=== PATIENT | female | born 1930 | race Caucasian/White ===

== ENCOUNTER 2017-03-29 13:38 | Emergency (ER) | payer OTHER ==
[~2017-03-29] VITALS: Ht 162.6 cm; Wt 63.0 kg
[~2017-03-29 13:38] MED LIST: ADULT LOW DOSE81 MG; ASPIR 8181 MG PO; ASPIRIN81 M2 PO; BENAZEPRIL HCL10 MG PO; CEFUROXIME500 MG PO; CIPRO500 MG PO; COUMADIN 4 MG TA4 M1 PO; COUMADIN 5 MG TA5 MG PO; ENOXAPARIN80 MG/0.1 SUBQ; FLOMAX0.4 MG PO; FLONASE 0.05%50 MCG NASAL; FUROSEMIDE 20 M20 MG PO; LEVAQUIN 250 M250 MG PO; LEVAQUIN 500 M500 M4 PO; LIPITOR 20 MG T20 M1 PO; LISINOPRIL10 MG PO; LISINOPRIL20 MG PO; LISINOPRIL5 MG; MAGNES; NOLVADEX20 MG PO; NORCO 5-325 TA1 EACH PO; POTASSIUM20 PO; PRADAXA150 MG PO; PROTONIX40 M1 PO; TOPROL XL25 MG PO; TOPROL XL50 MG PO; TRICOR48 MG; ZANTAC 150MG T150 M1; ZANTAC 150MG T150 M1 PO
[2017-03-29] MEDS ORDERED: COUMADIN 3 MG TA3 M1 PO (14:00)
[2017-03-29] MEDS ORDERED: LIPITOR 20 MG T20 M1 PO (14:01)
[2017-03-29] MEDS ORDERED: COUMADIN 4 MG TA4 M1 PO (14:01)
[2017-03-29] MEDS ORDERED: PROTONIX40 M1 PO (14:01)
[2017-03-29] MEDS ORDERED: NORVASC5 MG PO (14:01)
[2017-03-29] MEDS ORDERED: METOPROLOL SUCC25 M1 PO (14:02)
[2017-03-29] MEDS ORDERED: ASPIR 8181 MG PO (14:02)
[2017-03-29 14:34] LABS: ABSOLUTE EOSINOPHILS 0.1 thou/uL (0.0-0.7); ABSOLUTE LYMPHOCYTES 1.2 thou/uL (0.8-5.3); ABSOLUTE MONOCYTES 0.5 thou/uL (0.0-1.2); ABSOLUTE NEUTROPHILS 2.9 thou/uL (1.6-8.1); BASOPHILS 0.9 %; EOSINOPHILS 1.3 %; HEMATOCRIT 35.2 % (37.0-47.0); HEMOGLOBIN 11.6 gm/dL (12.0-15.0); LYMPHOCYTES 25.6 %; MCH 28.9 pg (26.0-34.0); MCV 87.7 fL (80.0-100.0); MONOCYTES 10.7 %; MPV 8.5 fl. (7.2-11.1); NUCLEATED RBCS 0 /100WBC; PLATELET COUNT* 174 thou/uL (150-400); POLYS 61.5 %; RBC 4.02 mil/uL (4.20-5.00); WBC 4.7 thou/uL (4.0-11.0)
[2017-03-29 14:40] LABS: CALCIUM 8.2 mg/dL (8.5-10.1); POTASSIUM 4.4 mmol/L (3.5-5.1)
[2017-03-29 14:45] LABS: ALBUMIN 2.8 g/dL (3.4-5.0); TOTAL BILIRUBIN 0.2 mg/dL (<0.1-1.0)
[2017-03-29 14:47] LABS: INR 2.2; PROTIME 21.5 Seconds (9.20-11.50)
[2017-03-29 16:11] VITALS: BP 116/56
== END 2017-03-29 16:13 | disposition home or self-care (01) ==
LOC: M.ERS 13:38
PROVIDERS: Nurse Practitioner Family
DX: M17.12 Unilateral primary osteoarthritis, left knee (principal)

== ENCOUNTER 2017-08-26 08:01 | Observation (INO) | payer OTHER ==
[2017-08-26] VITALS (7 sets, daily range): BP systolic 91–157; BP diastolic 52–81
[~2017-08-26] VITALS: Ht 165.1 cm; Wt 64.9 kg
[~2017-08-26 08:01] MED LIST changes: +COUMADIN 3 MG TA3 M1 PO; +METOPROLOL SUCC25 M1 PO; +NORVASC5 MG PO
[2017-08-26 08:27] LABS: ABSOLUTE MONOCYTES 0.3 thou/uL (0.0-1.2); BASOPHILS 0.6 %; EOSINOPHILS 0.7 %; HEMATOCRIT 39.4 % (37.0-47.0); HEMOGLOBIN 12.9 gm/dL (12.0-15.0); MCH 28.3 pg (26.0-34.0); MCHC 32.7 g/dL (28.0-37.0); MCV 86.7 fL (80.0-100.0); MONOCYTES 7.6 %; MPV 8.5 fl. (7.2-11.1); NUCLEATED RBCS 0 /100WBC; PLATELET COUNT* 151 thou/uL (150-400); POLYS 68.1 %; RBC 4.54 mil/uL (4.20-5.00); RDW-CV 15.8 % (10.5-14.5); WBC 4.4 thou/uL (4.0-11.0)
[2017-08-26 08:47] LABS: ANION GAP 7 mmol/L (7-16); BUN 14 mg/dL (7-18); CALCIUM 8.5 mg/dL (8.5-10.1); CHLORIDE 106 mmol/L (98-107); CO2 27 mmol/L (21-32); CREATININE 0.7 mg/dL (0.6-1.3); GLUCOSE 100 mg/dL (70-99); POTASSIUM 3.7 mmol/L (3.5-5.1); SODIUM 140 mmol/L (136-145)
[2017-08-26 08:52] LABS: APTT 32.9 Seconds (25.0-31.3); INR 2.9; PROTIME 27.8 Seconds (9.20-11.50)
[2017-08-26 08:54] LABS: ALBUMIN 3.2 g/dL (3.4-5.0); ALKALINE PHOSPHATASE 99 U/L (46-116); LIPASE 101 U/L (73-393); SGOT 25 U/L (15-37); SGPT 15 U/L (30-65); TOTAL BILIRUBIN 0.8 mg/dL (<0.1-1.0); TOTAL PROTEIN 6.5 g/dL (6.4-8.2); TROPONIN-I LEVEL <0.06 ng/mL (<0.06)
[2017-08-26 09:06] LABS: URINE BILIRUBIN NEGATIVE (Negative); URINE BLOOD TRACE (Negative); URINE CLARITY CLEAR; URINE COLOR YELLOW; URINE GLUCOSE-RANDOM NEGATIVE (Negative); URINE KETONES NEGATIVE (Negative); URINE LEUKOCYTES-REFLEX NEGATIVE (Negative); URINE NITRITE-REFLEX NEGATIVE (Negative); URINE PROTEIN NEGATIVE (Negative); URINE SPECIFIC GRAVITY <= 1.005 (1.005-1.030); URINE UROBILINOGEN 0.2 E.U./dl (0.2-1.0)
--- NOTE | 2017-08-26 15:30 | 2DMMODE ---
[place] [address] 2 D/M-MODE ECHOCARDIOGRAM Name: EVERETTE PATTERSON Room: [address] IN [facility]#: [id number] Admission: 08/26/17 Attend Phys: Hemal Alvarez, Discharge: Date of : 30 Date of Service: 08/26/17 1530 Report #: [id number] THIS REPORT FOR: //name// APPROVED REPORT Study performed: 08/26/2017 14:38:03 EXAM: Comprehensive 2D, Doppler, and color-flow Echocardiogram Patient Location: In-Patient Room #: [facility] Status: routine BSA: 1.70 HR: 61 bpm BP: 126/63 mmHg Rhythm: NSR Other Information Study Quality: Good Indications Atrial Fibrillation 2D Dimensions LVEF(%): 60.49 (>50%) IVSd: 9.57 (7-11mm) LVOT Diam: 22.15 (18-24mm) LVDd: 42.64 mm PWd: 11.03 (7-11mm) Ascending Ao: 34.58 (22-36mm) LVDs: 28.98 (25-40mm) Aortic Root: 36.75 mm West's LVEF: 60.49 % Volumes Left Atrial Volume (Systole) LA ESV Index: 46.90 mL/m2 Aortic Valve AoV Peak Chava.: 1.04 m/s AO Peak Gr.: 4.35 mmHg LVOT Max P.67 mmHg AO Mean Gr.: 2.12 mmHg LVOT Mean P.04 mmHg LVOT Max V: 0.82 m/s AO V2 VTI: 23.89 cm LVOT Mean V: 0.46 m/s EMMA (VTI): 3.18 cm2 LVOT V1 VTI: 19.73 cm AI [place]: 1.59 m/s2 AI PHT: 589.84 [place] [address] 2 D/M-MODE ECHOCARDIOGRAM Name: EVERETTE PATTERSON Room: [address] IN [facility].#: [id number] Admission: 08/26/17 Attend Phys: Hemal Alvarez, Discharge: Date of : 30 Date of Service: 08/26/17 1530 Report #: [id number] Mitral Valve E/A Ratio: 1.02 MV Decel. Time: 160.29 ms MV E Max Chava.: 0.72 m/s MV PHT: 46.48 ms MVA (PHT): 4.73 cm2 TDI E/Lateral E': 9.00 E/Medial E': 10.29 Medial E' Chava.: 0.07 m/s Lateral E' Chava.: 0.08 m/s Pulmonary Valve PV Peak Chava.: 0.62 m/s PV Peak Gr.: 1.55 mmHg Tricuspid Valve TR Peak Gr.: 25.16 mmHg RVSP: 30.00 mmHg Left Ventricle The left ventricle is normal size. There is slight dyssynergy noted of the left ventricle consistent with possible underlying bundle branch block. There is normal left ventricular wall thickness. Left ventricular systolic function is normal. LVEF is 50-55%. Transmitral Doppler flow pattern suggests impaired LV relaxation. Right Ventricle The right ventricle is normal size. The right ventricular systolic function is normal. Atria Left atrium is moderately dilated. The right atrium size is normal. Aortic Valve The aortic valve is normal in structure. Mild aortic regurgitation. There is no aortic valvular stenosis. Mitral Valve The mitral valve is normal in structure. Mild mitral regurgitation. No evidence of mitral valve stenosis. Tricuspid Valve The tricuspid valve is normal in structure. Mild tricuspid regurgitation. The RVSP is 30-35 mmHg[place] [address] 2 D/M-MODE ECHOCARDIOGRAM Name: EVERETTE PATTERSON Rodríguez Room: [address] IN [facility]#: [id number] Admission: 08/26/17 Attend Phys: Hemal Alvarez, Discharge: Date of : 30 Date of Service: 08/26/17 1530 Report #: [id number] The pulmonary valve is normal in structure. Mild pulmonic regurgitation. Great Vessels The aortic root is normal in size. IVC is not well visualized. Pericardium There is no pericardial effusion. <Conclusion> The left ventricle is normal size. There is normal left ventricular wall thickness. Left ventricular systolic function is normal. LVEF is 50-55%. Transmitral Doppler flow pattern suggests impaired LV relaxation. There is slight dyssynergy noted of the left ventricle consistent with possible underlying bundle branch block. Left atrium is moderately dilated. Mild aortic regurgitation. Mild mitral regurgitation. Mild tricuspid regurgitation. The RVSP is 30-35 mmHg. <ELECTRONICALLY SIGNED> By: Alcides Dougherty MD, FACC 08/26/17 153 29 29 Alcides Dougherty MD, FACC /INF
--- NOTE | 2017-08-26 16:24 | EKG ---
[place] [address] ELECTROCARDIOGRAM REPORT Name: EVERETTE PATTERSON Room: [address] IN [facility]#: [id number] Admission: 08/26/17 Attend Phys: Hemal Alvarez MD Discharge: Date of : 30 Report #: [id number] THIS REPORT FOR: //name// [facility] ED Test Date: 2017-08-26 Test Time: 08:30:19 Pat Name: EVERETTE PATTERSON Department: Room: Gender: Auto Tester: Narayan MCGUIRE : 1930 Requested By: Antoine Ruiz Order Number: [id number] MD: Alcides Dougherty Measurements Intervals [place] Rate: 68 P: -45 DC: 161 QRS: -34 QRSD: 85 T: 29 QT: 411 QTc: 438 Interpretive Statements Sinus or ectopic atrial rhythm Left axis deviation Compared to ECG 09/08/2016 07:20:55 Ectopic atrial rhythm now present Sinus rhythm no longer present Electronically Signed On 08-26-2017 16:24:05 CDT by Alcides Dougherty [email or web address] <ELECTRONICALLY SIGNED> By: Alcides Dougherty MD, FACC 08/26/17 1624 Alcides Dougherty MD, FAC /EPI
[2017-08-27] VITALS (9 sets, daily range): BP systolic 91–130; BP diastolic 49–69
[2017-08-27 05:16] LABS: INR 3.2; PROTIME 30.4 Seconds (9.20-11.50)
[2017-08-27 05:33] LABS: CALCIUM 8.5 mg/dL (8.5-10.1); CREATININE 0.7 mg/dL (0.6-1.3); POTASSIUM 4.2 mmol/L (3.5-5.1)
--- NOTE | 2017-08-28 15:16 | CON ---
[address] [address] CONSULTATION Name: LEONARDOEVERETTE Rodríguez Room: [address] Dora Snell#: [id number] Admission: 08/26/17 Attend Phys: Hemal Alvarez MD Discharge: 08/27/17 Date of : 30 Report #: [id number] THIS REPORT FOR: //name// CC: Hemal Silverio MD DATE OF SERVICE: 08/26/2017 CARDIOLOGY CONSULTATION INDICATION: Syncope. HISTORY OF PRESENT ILLNESS: The patient is a very pleasant 87-year-old white female who is fairly functional. Early Friday morning while sleeping, she arose to use the bedside commode. Upon standing to go back to bed, she became profoundly lightheaded and dizzy. She woke half on and half off of her bed. She did not have any injuries from this. She did not have any state felt to be postictal. The patient had another episode this morning of profound dizziness upon standing. She sat down and had her son called EMS. She was brought to the hospital for further evaluation. In the Emergency Room, she was noted to have a single run of nonsustained atrial tachycardia at a rate of approximately 140 beats per minute. This lasted only 12 beats. She has had no recurrent dysrhythmia. She does have a history of paroxysmal atrial fibrillation. She does also have a history of DVT with pulmonary emboli and IVC filter placement. She is chronically anticoagulated with warfarin. Her INR is currently 2.9. She is having no bleeding problems. She denies chest pain. She is not having shortness of breath. PAST MEDICAL HISTORY: 1. Paroxysmal atrial fibrillation. 2. History of DVT with pulmonary emboli. 3. IVC filter placement. 4. Nonobstructive coronary artery disease by catheterization in 2014. 5. History of gastric ulcer. 6. Hypertension. 7. Moderate pulmonary hypertension. 8. Hyperlipidemia. 9. Breast cancer. PAST SURGICAL HISTORY: 1. Appendectomy. 2. Hysterectomy. 3. Tonsillectomy. FAMILY HISTORY: [place] [address] CONSULTATION Name: EVERETTE PATTERSON Room: [address]#: [id number] Admission: 08/26/17 Attend Phys: Hemal Alvarez MD Discharge: 08/27/17 Date of : 30 Report #: [id number] SOCIAL HISTORY: The patient is retired. She does not smoke. She does not drink alcohol. She has a supportive daughter with her. ALLERGIES: None. HOME MEDICATIONS: Protonix 40 mg p.o. b.i.d., aspirin 81 mg daily, warfarin 3 mg 4 days weekly, followed by 4 mg 3 days weekly, atorvastatin 20 mg at bedtime, amlodipine 5 mg daily. REVIEW OF SYSTEMS: A 14-point review of systems is positive for generalized weakness without focal paralysis. She has had syncope as outlined above. She reports mild edema. She has a history of breast cancer remotely. She has a history of DVT. 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 She wears glasses without acute visual changes. PHYSICAL EXAMINATION: VITAL SIGNS: Stable. Blood pressure 126/63, pulse 66 and regular. GENERAL: This is a pleasant elderly female who is in no distress. Mood and affect appropriate. HEENT: The patient is wearing glasses. Extraocular muscles intact. Mucous membranes are moist. NECK: Examination of the neck shows no jugular venous distention. There are no carotid bruits. CHEST: Examination of the chest reveals clear lung villanueva without wheezes or rales. CARDIAC EXAMINATION: Reveals a regular rhythm with normal S1 and S2. I do not appreciate gallop or murmur. ABDOMEN: Examination of the abdomen reveals normal bowel sounds. The abdomen is soft and nontender. EXTREMITIES: Examination of the extremities shows no edema. Peripheral pulses 2+ and palpable. SKIN: Warm and dry. Carotid Doppler show mild bilateral plaquing without hemodynamically significant stenosis. Thyroid function studies are normal. LABORATORY DATA: INR 2.9. Metabolic profile within normal limits. Troponin less than 0.06. CBC unremarkable. Chest x-ray without acute process. IMPRESSION AND RECOMMENDATIONS: 1. Syncope, etiology not clear, but it sounds as if the patient may be having orthostatic hypotension. We will have orthostatic blood pressures checked in the hospital. The patient's blood pressure at present [place] [address] CONSULTATION Name: EVERETTE PATTERSON Rodríguez Room: [address] Dora Snell#: [id number] Admission: 08/26/17 Attend Phys: Hemal Alvarez MD Discharge: 08/27/17 Date of : 30 Report #: [id number] this point, I would be in favor of decreasing her amlodipine to 2.5 mg daily and following clinically. An echocardiogram has been ordered and is pending. 2. Paroxysmal atrial fibrillation. The patient is in sinus rhythm on beta cm alone. She is anticoagulated with warfarin and therapeutic. 3. History of deep venous thrombosis/pulmonary embolism with moderate pulmonary hypertension, presently stable. Repeat echocardiogram at this time. Continue warfarin indefinitely. 4. Hyperlipidemia. Continue statin agent as outlined above. 5. Coronary artery disease that is nonocclusive by catheterization 2 years ago, presently stable. The patient does not have any symptoms to suggest angina. The patient is on appropriate medications including 81 mg aspirin daily. <ELECTRONICALLY SIGNED> By: Alcides Dougherty MD, FACC 08/28/17 1516 1425 Jenny Dougherty MD, FACC /nt
== END 2017-08-27 17:10 | disposition home or self-care (01) ==
LOC: M.ERS 08:01 → M.TBA-ER 09:57 → M.2W 09:57
PROVIDERS: Emergency Medicine; ADMIT Internal Medicine
DX: I48.91 Unspecified atrial fibrillation (principal); I25.10 Atherosclerotic heart disease of native coronary artery without angina pectoris; R55 Syncope and collapse; D68.59 Other primary thrombophilia; I27.81 Cor pulmonale (chronic); K27.9 Peptic ulcer, site unspecified, unspecified as acute or chronic, without hemorrhage or perforation; I10 Essential (primary) hypertension; I27.20 Pulmonary hypertension, unspecified; I95.1 Orthostatic hypotension; E78.5 Hyperlipidemia, unspecified; Z90.710 Acquired absence of both cervix and uterus; Z95.828 Presence of other vascular implants and grafts; Z90.89 Acquired absence of other organs; Z86.718 Personal history of other venous thrombosis and embolism; Z87.19 Personal history of other diseases of the digestive system; Z85.3 Personal history of malignant neoplasm of breast; Z98.890 Other specified postprocedural states

== ENCOUNTER 2018-02-23 09:31 | Emergency (ER) | payer OTHER ==
[~2018-02-23] VITALS: Ht 170.2 cm; Wt 66.7 kg
[2018-02-23 10:18] LABS: ABSOLUTE LYMPHOCYTES 1.1 thou/uL (0.8-5.3); ABSOLUTE MONOCYTES 0.2 thou/uL (0.0-1.2); BASOPHILS 0.5 %; EOSINOPHILS 0.6 %; HEMATOCRIT 37.2 % (37.0-47.0); HEMOGLOBIN 12.2 gm/dL (12.0-15.0); LYMPHOCYTES 33.3 %; MCH 30.9 pg (26.0-34.0); MCHC 32.9 g/dL (28.0-37.0); MCV 93.9 fL (80.0-100.0); MONOCYTES 6.7 %; MPV 8.8 fl. (7.2-11.1); NUCLEATED RBCS 0 /100WBC; PLATELET COUNT* 138 thou/uL (150-400); POLYS 58.9 %; RBC 3.97 mil/uL (4.20-5.00); RDW-CV 15.4 % (10.5-14.5); WBC 3.4 thou/uL (4.0-11.0)
[2018-02-23 10:24] LABS: ANION GAP 6 mmol/L (7-16); BUN 18 mg/dL (7-18); CHLORIDE 107 mmol/L (98-107); CO2 28 mmol/L (21-32); CREATININE 0.7 mg/dL (0.6-1.3); GLUCOSE 89 mg/dL (70-99); POTASSIUM 4.1 mmol/L (3.5-5.1); SODIUM 141 mmol/L (136-145)
[2018-02-23 10:25] LABS: INR 1.8; PROTIME 18.1 Seconds (9.20-11.50)
[2018-02-23 10:31] LABS: ALKALINE PHOSPHATASE 97 U/L (46-116); SGOT 27 U/L (15-37); SGPT 18 U/L (30-65); TOTAL BILIRUBIN 0.6 mg/dL (<0.1-1.0); TOTAL PROTEIN 6.3 g/dL (6.4-8.2); TROPONIN-I LEVEL <0.06 ng/mL (<0.06)
[2018-02-23 10:34] LABS: URINE BILIRUBIN NEGATIVE (Negative); URINE BLOOD TRACE (Negative); URINE CLARITY CLEAR; URINE COLOR YELLOW; URINE GLUCOSE-RANDOM NEGATIVE (Negative); URINE KETONES NEGATIVE (Negative); URINE LEUKOCYTES-REFLEX 1+ (Negative); URINE NITRITE-REFLEX NEGATIVE (Negative); URINE PROTEIN NEGATIVE (Negative); URINE SPECIFIC GRAVITY 1.015 (1.005-1.030); URINE UROBILINOGEN 0.2 E.U./dl (0.2-1.0)
[2018-02-23 10:44] LABS: BACTERIA-REFLEX 1-9 Few /HPF (None Seen); CASTS None Seen /LPF (None Seen); CRYSTALS None Seen /LPF (None Seen); MUCUS None Seen strn/LPF (None Seen); SQUAMOUS >10 Many /LPF (0-3); URINE RBC 3-10 Few /HPF (0-2); URINE WBC-REFLEX 0-5 Rare /HPF (0-5)
[2018-02-23] MEDS ORDERED: KEFLEX500 M1 PO (13:09)
[2018-02-23 13:42] VITALS: BP 134/60
--- NOTE | 2018-02-23 17:35 | EKG ---
[place] [address] ELECTROCARDIOGRAM REPORT Name: LEONARDOEVERETTE L Room: [facility]#: [id number] Admission: 02/23/18 Attend Phys: Discharge: 02/23/18 Date of : 30 Report #: [id number] THIS REPORT FOR: //name// [facility] ED Test Date: 2018-02-23 Test Time: 09:40:33 Pat Name: EVERETTE PATTERSON Department: Room: Gender: F Library Assistant: Deanna TAY : 1930 Requested By: Soy Osorio Order Number: [id number] MD: Roshan Ching Measurements Intervals [place] Rate: 77 P: -62 AL: 147 QRS: -25 QRSD: 83 T: 25 QT: 395 QTc: 448 Interpretive Statements Ectopic atrial rhythm Borderline left axis deviation Compared to ECG 08/26/2017 08:30:19 No significant changes Electronically Signed On 02-23-2018 17:35:17 DEVELOPER SUPPORT ENGINEER by Roshan Ching [email or web address] <ELECTRONICALLY SIGNED> By: Roshan Ching MD, [facility] 02/23/18 1735 9 9 Roshan Ching MD, FACC /EPI
== END 2018-02-23 13:43 | disposition home or self-care (01) ==
LOC: M.ERS 09:31
PROVIDERS: Emergency Medicine Emergency Medical Services
DX: R53.1 Weakness (principal); N39.0 Urinary tract infection, site not specified; I10 Essential (primary) hypertension; I48.91 Unspecified atrial fibrillation; I25.10 Atherosclerotic heart disease of native coronary artery without angina pectoris; Z90.49 Acquired absence of other specified parts of digestive tract; Z90.710 Acquired absence of both cervix and uterus; Z86.711 Personal history of pulmonary embolism; Z85.118 Personal history of other malignant neoplasm of bronchus and lung

== ENCOUNTER 2018-04-26 07:36 | Inpatient (IN) | payer OTHER ==
[~2018-04-26] VITALS: Ht 167.6 cm; Wt 65.0 kg
[~2018-04-26 07:36] MED LIST changes: +KEFLEX500 M1 PO
[2018-04-26 07:40] VITALS: BP 132/66
[2018-04-26 08:16] LABS: ABSOLUTE LYMPHOCYTES 0.8 thou/uL (0.8-5.3); ABSOLUTE MONOCYTES 0.1 thou/uL (0.0-1.2); ABSOLUTE NEUTROPHILS 2.1 thou/uL (1.6-8.1); BASOPHILS 0.2 %; EOSINOPHILS 0.4 %; HEMATOCRIT 38.5 % (37.0-47.0); HEMOGLOBIN 12.8 gm/dL (12.0-15.0); LYMPHOCYTES 25.8 %; MCH 31.9 pg (26.0-34.0); MCHC 33.3 g/dL (28.0-37.0); MCV 95.8 fL (80.0-100.0); MONOCYTES 4.5 %; MPV 8.7 fl. (7.2-11.1); NUCLEATED RBCS 0 /100WBC; PLATELET COUNT* 109 thou/uL (150-400); POLYS 69.1 %; RBC 4.02 mil/uL (4.20-5.00); RDW-CV 16.3 % (10.5-14.5)
[2018-04-26 08:23] LABS: ANION GAP 4 mmol/L (7-16); APTT 26.6 Seconds (25.0-31.3); BUN 22 mg/dL (7-18); CALCIUM 8.8 mg/dL (8.5-10.1); CHLORIDE 108 mmol/L (98-107); CO2 32 mmol/L (21-32); CREATININE 0.8 mg/dL (0.6-1.3); GLUCOSE 105 mg/dL (70-99); INR 2.4; POTASSIUM 3.9 mmol/L (3.5-5.1); SODIUM 144 mmol/L (136-145)
[2018-04-26 08:25] LABS: URINE BILIRUBIN NEGATIVE (Negative); URINE BLOOD NEGATIVE (Negative); URINE CLARITY CLEAR; URINE COLOR YELLOW; URINE GLUCOSE-RANDOM NEGATIVE (Negative); URINE KETONES NEGATIVE (Negative); URINE LEUKOCYTES-REFLEX NEGATIVE (Negative); URINE NITRITE-REFLEX NEGATIVE (Negative); URINE PROTEIN NEGATIVE (Negative); URINE UROBILINOGEN 0.2 E.U./dl (0.2-1.0)
[2018-04-26 08:35] LABS: ALBUMIN 3.2 g/dL (3.4-5.0); ALKALINE PHOSPHATASE 93 U/L (46-116); NT-PRO BRAIN NAT PEPTIDE 432 pg/mL (<300); SGOT 27 U/L (15-37); SGPT 21 U/L (30-65); TOTAL BILIRUBIN 0.5 mg/dL (<0.1-1.0); TOTAL PROTEIN 6.4 g/dL (6.4-8.2); TROPONIN-I LEVEL <0.06 ng/mL (<0.06)
[2018-04-26 13:00] VITALS: BP 131/62; BP 170/81
[2018-04-26 15:44] VITALS: BP 126/65
[2018-04-26 20:00] VITALS: BP 130/64
[2018-04-27] VITALS: BP 143/72
[2018-04-27 04:00] VITALS: BP 130/67
[2018-04-27 08:11] VITALS: BP 130/70
--- NOTE | 2018-04-27 10:21 | EKG ---
[place] [address] ELECTROCARDIOGRAM REPORT Name: EVERETTE PATTERSON Room: [address] ADM IN .R#: [id number] Admission: 04/26/18 Attend Phys: Jean Maldonado Discharge: Date of : 30 Report #: [id number] THIS REPORT FOR: //name// [facility] ED Test Date: 2018-04-26 Test Time: 07:47:02 Pat Name: EVERETTE PATTERSON Department: Room: [facility] Gender: F Dental Detail Representative: MAGGI : 1930 Requested By: Soy Osorio Order Number: [id number] MD: Roshan Ching Measurements Intervals [place] Rate: 77 P: -41 OR: 158 QRS: -19 QRSD: 81 T: 61 QT: 390 QTc: 442 Interpretive Statements Sinus rhythm Borderline left axis deviation Borderline T abnormalities, anterior leads Compared to ECG 02/23/2018 09:40:33 T-wave abnormality now present Electronically Signed On 04-27-2018 10:21:02 DIRECTOR OF PATIENT FINANCIAL SERVICES by Roshan Ching [email or web address] <ELECTRONICALLY SIGNED> By: Roshan Ching MD, FACC 04/27/18 1021 0747 0747 Roshan Ching MD, [facility] /EPI
[2018-04-27 11:32] VITALS: BP 131/68
--- NOTE | 2018-04-27 14:33 | 2DMMODE ---
[place] [address] 2 D/M-MODE ECHOCARDIOGRAM Name: EVERETTE PATTERSON Room: [address] IN [facility]#: [id number] Admission: 04/26/18 Attend Phys: Terrell Goncalves Discharge: Date of : 30 Date of Service: 04/27/18 1432 Report #: [id number] THIS REPORT FOR: //name// APPROVED REPORT Study performed: 04/27/2018 10:37:59 EXAM: Comprehensive 2D, Doppler, and color-flow Echocardiogram Patient Location: In-Patient Room #: [facility] Status: routine BSA: 1.55 HR: 83 bpm BP: 130/70 mmHg Rhythm: NSR Other Information Study Quality: Good Indications Dyspnea Near syncope 2D Dimensions IVSd: 9.80 (7-11mm) LVOT Diam: 21.36 (18-24mm) LVDd: 45.81 mm PWd: 9.03 (7-11mm) Ascending Ao: 33.49 (22-36mm) LVDs: 33.94 (25-40mm) Aortic Root: 36.34 mm Volumes Left Atrial Volume (Systole) LA ESV Index: 39.60 mL/m2 Aortic Valve AoV Peak Chava.: 1.00 m/s AO Peak Gr.: 3.99 mmHg LVOT Max P.56 mmHg AO Mean Gr.: 2.10 mmHg LVOT Mean P.21 mmHg LVOT Max V: 0.80 m/s AO V2 VTI: 22.11 cm LVOT Mean V: 0.51 m/s EMMA (VTI): 3.12 cm2 LVOT V1 VTI: 19.24 cm AI [place]: 1.66 m/s2 AI PHT: 665.32 [place] [address] 2 D/M-MODE ECHOCARDIOGRAM Name: EVERETTE PATTERSON Room: [address] IN [facility]#: [id number] Admission: 04/26/18 Attend Phys: Terrell Goncalves Discharge: Date of : 30 Date of Service: 04/27/18 1432 Report #: [id number] E/A Ratio: 1.04 MV Decel. Time: 213.29 ms MV E Max Chava.: 0.81 m/s MV PHT: 61.86 ms MVA (PHT): 3.56 cm2 TDI E/Lateral E': 6.75 E/Medial E': 10.13 Medial E' Chava.: 0.08 m/s Lateral E' Chava.: 0.12 m/s Pulmonary Valve PV Peak Chava.: 0.86 m/s PV Peak Gr.: 2.93 mmHg Tricuspid Valve RAP Estimate: 5.00 mmHg TR Peak Gr.: 29.36 mmHg RVSP: 34.00 mmHg PA Pressure: 34.00 mmHg Left Ventricle The left ventricle is normal size. There is normal LV segmental wall motion. There is normal left ventricular wall thickness. Left ventricular systolic function is normal. The left ventricular ejection fraction is within the normal range. LVEF is 60-65%. The left ventricular diastolic function is normal. Right Ventricle The right ventricle is normal size. The right ventricular systolic function is normal. Atria Left atrium is mildly dilated. The right atrium size is normal. Aortic Valve The aortic valve is normal in structure. Mild aortic regurgitation. There is no aortic valvular stenosis. Mitral Valve The mitral valve is normal in structure. Mild mitral regurgitation. No evidence of mitral valve stenosis. Tricuspid Valve The tricuspid valve is normal in structure. Mild tricuspid regurgitation. estimated pa pressure 40 [place] [address] 2 D/M-MODE ECHOCARDIOGRAM Name: EVERETTE PATTERSON Room: [address]#: [id number] Admission: 04/26/18 Attend Phys: Terrell Goncalves Discharge: Date of : 30 Date of Service: 04/27/18 1432 Report #: [id number] Pulmonic Valve Pulmonic valve is not well visualized. Mild pulmonic regurgitation. Great Vessels The aortic root is normal in size. IVC is normal in size and collapses >50% with inspiration. Pericardium There is no pericardial effusion. <Conclusion> LVEF is 60-65%. Left atrium is mildly dilated. Mild aortic regurgitation. Mild mitral regurgitation. <ELECTRONICALLY SIGNED> By: Roshan Ching MD, FACC 04/27/18 1432 143 1432 Roshan Ching MD, FACC /INF
[2018-04-27 15:24] LABS: ABSOLUTE LYMPHOCYTES 0.9 thou/uL (0.8-5.3); ABSOLUTE MONOCYTES 0.1 thou/uL (0.0-1.2); ABSOLUTE NEUTROPHILS 1.4 thou/uL (1.6-8.1); BASOPHILS 0.2 %; EOSINOPHILS 0.8 %; HEMATOCRIT 37.6 % (37.0-47.0); HEMOGLOBIN 12.5 gm/dL (12.0-15.0); MCH 31.7 pg (26.0-34.0); MCHC 33.2 g/dL (28.0-37.0); MCV 95.6 fL (80.0-100.0); MONOCYTES 5.2 %; MPV 8.2 fl. (7.2-11.1); NUCLEATED RBCS 0 /100WBC; PLATELET COUNT* 99 thou/uL (150-400); POLYS 57.8 %; RBC 3.93 mil/uL (4.20-5.00); RDW-CV 16.6 % (10.5-14.5); WBC 2.4 thou/uL (4.0-11.0)
[2018-04-27 16:00] VITALS: BP 130/66
--- NOTE | 2018-04-27 18:03 | CARDNUC ---
[place] [address] CARDIAC NUCLEAR IMAGING REPORT Name: EVERETTE PATTERSON Rodríguez Room: [address] IN [facility]#: [id number] Admission: 04/26/18 Attend Phys: Terrell Goncalves Discharge: Date of : 30 Date of Service: 04/27/18 1803 Report #: [id number] THIS REPORT FOR: //name// APPROVED REPORT Study performed: 04/27/2018 04:26:00 Indication: Near Syncope, Palpitations, Increased Weakness. Patient Location: In-Patient Stress Tech: Edna Felton Stress Nurse: Leticia Sepulveda RN Ht: 5 ft 5 in Wt: 145 lbs BSA: 1.73 m2 BMI: 24.12 Medical History Medical History: HTN, Hyperlipidemia, Near Syncope, Palpitations, Increased Weakness, IVC Filter, HX AFib, CAD. Medications: ASA 81 Mg, Lipitor, Metoprolol, Home medicine -Coumadin. Allergies: No known drug allergies Cardiac Risk Factors: Age, FHX of CAD, HTN, Hyperlipidemia. Previous Cardiac Procedures: None Pretest Chest Pain Characteristics: No chest pain Exercise History: Sedentary Physical Disabilities: Generalized Age Related Weakness, Lightheaded, unstable gait. Meds Held (24 hrs): Metoprolol Resting Data Rest SPECT myocardial perfusion imaging was performed in supine position 30 minutes following the intravenous injection of 11.1 mCi of Tc-99m Sestamibi. Time of rest injection: 12:10 The images were gated to evaluate regional wall motion and calculate left ventricular ejection fraction. Administration Route: IV Administration Site: Left AC Pharmacologic Stress Pharmacologic stress test was performed by injecting Regadenoson 0.4 mg IV push over 10-15 seconds immediately followed by the intravenous injection of 32.4 mCi of Tc-99m Sestamibi. Time of stress injection: 13:45 Administration Route: [place] [address] CARDIAC NUCLEAR IMAGING REPORT Name: EVERETTE PATTERSON Room: [address] IN [facility]#: [id number] Admission: 04/26/18 Attend Phys: Terrell Goncalves Discharge: Date of : 30 Date of Service: 04/27/18 1803 Report #: [id number] Administration Site: Left AC Heart Rate at time of stress injection: 118 bpm. Gated Stress SPECT was performed 40 minutes after stress injection. The images were gated to evaluate regional wall motion and calculate left ventricular ejection fraction. Prone imaging was performed. Stress Test Details Stress Test: Pharmacologic stress testing performed using 0.4 mg of regadenoson per 5 mL given IV over 10 seconds. Reason for pharmacologic stress test: physical limitation, Generalized weakness, Unstable gait, Lightheaded.. HR Max Heart Rate (APMHR): 133 bpm Resting HR: 72 bpm Target HR (85% APMHR): 113 bpm Max HR Achieved: 118 bpm % of APMHR: 88 Recovery HR: 106 bpm BP Resting BP: 137/75 mmHg Max BP: 120/56 mmHg Recovery BP: 110/60 mmHg ECG Resting ECG: Sinus Rhythm Stress ECG: Sinus Tachycardia ST Change: None Arrhythmia: None Recovery ECG: Sinus Rhythm Recovery ST Change: None Recovery Arrhythmia: None Clinical Reason for Termination: Completed protocol Stress Symptoms: Tightness in chest. Exercise duration: 0 min 0 sec Exercise capacity: 1.00 METs The patient tolerated Lexiscan infusion without significant symptoms. Nurse Comments 87 year old female inpatient, presented with recent HX of near syncope, increased weakness and lightheadedness. Patient 1-2 assist with transfer. Patient tolerated sitting Lexiscan well. Recovery unremarkable. Patient escorted via [place] [address] CARDIAC NUCLEAR IMAGING REPORT Name: EVERETTE PATTERSON Rodríguez Room: [address]#: [id number] Admission: 04/26/18 Attend Phys: Terrell Goncalves Discharge: Date of : 30 Date of Service: 04/27/18 1803 Report #: [id number] Medicine for images. Patient stable with no complaints at that time. Stress ECG Conclusion The baseline 12-lead EKG shows sinus rhythm without significant ST or T wave abnormality. EKGs obtained during and post Lexiscan infusion show sinus rhythm and sinus tachycardia with no significant ST or T wave changes when compared to baseline. There were no stress-induced arrhythmias. Study Quality Study: Good Artifact: Mild Diaphragmatic artifact Study Data At rest, the left ventricular ejection fraction was 68%.. Post stress, the left ventricular ejection was 62%.. TID = 0.93. Perfusion Perfusion images obtained in the supine position at rest and post stress show a moderate region of photopenia involving the inferior wall that resolves completely with post stress prone imaging suggesting diaphragmatic attenuation artifact. There were no other significant fixed or reversible defects identified. Wall Motion Normal left ventricular wall motion. Nuclear Conclusion ECG Findings: negative for ischemia Clinical Findings: negative for ischemia Nuclear Findings: negative for ischemia Exercise Capacity: not assessed Left Ventricular Function: normal Risk Study: low Myocardial perfusion images show no defects consistent with infarct or ischemia. Left ventricular systolic function is normal on gated studies. This is a low risk study. <Conclusion> The baseline 12-lead EKG shows sinus rhythm without significant ST or T wave abnormality. EKGs obtained during and post Lexiscan infusion show sinus rhythm and sinus tachycardia with no significant ST [place] [address] CARDIAC NUCLEAR IMAGING REPORT Name: EVERETTE PATTERSON Rodríguez Room: [address] IN [facility]#: [id number] Admission: 04/26/18 Attend Phys: Terrell Goncalves Discharge: Date of : 30 Date of Service: 04/27/18 1803 Report #: [id number] wave changes when compared to baseline. There were no stress-induced arrhythmias. <ELECTRONICALLY SIGNED> By: Alcides Dougherty MD, FACC 04/27/181802 02 02 Alcides Dougherty MD, FACC /INF
[2018-04-27 20:20] VITALS: BP 120/62
[2018-04-28] VITALS: BP 101/53
[2018-04-28 04:00] VITALS: BP 107/64
[2018-04-28 07:53] VITALS: BP 132/68
[2018-04-28 09:33] VITALS: BP 132/68
== END 2018-04-28 12:56 | disposition home or self-care (01) | DRG 74 ==
LOC: M.ERS 07:36 → M.TBA-ER 09:57 → M.2W 09:57
PROVIDERS: Emergency Medicine Emergency Medical Services; ADMIT Internal Medicine
DX: G90.9 Disorder of the autonomic nervous system, unspecified (principal); D68.59 Other primary thrombophilia; I48.91 Unspecified atrial fibrillation; D70.9 Neutropenia, unspecified; R54 Age-related physical debility; I25.10 Atherosclerotic heart disease of native coronary artery without angina pectoris; K21.9 Gastro-esophageal reflux disease without esophagitis; E78.5 Hyperlipidemia, unspecified; I10 Essential (primary) hypertension; Z79.01 Long term (current) use of anticoagulants; Z79.82 Long term (current) use of aspirin; Z79.899 Other long term (current) drug therapy; Z82.49 Family history of ischemic heart disease and other diseases of the circulatory system; Z83.3 Family history of diabetes mellitus; Z85.3 Personal history of malignant neoplasm of breast; Z90.49 Acquired absence of other specified parts of digestive tract; Z90.710 Acquired absence of both cervix and uterus

== ENCOUNTER 2018-07-15 09:51 | Inpatient (IN) | payer OTHER ==
[~2018-07-15] VITALS: Ht 170.2 cm; Wt 64.4 kg
[2018-07-15 09:59] VITALS: BP 121/65
[2018-07-15 10:24] LABS: HEMATOCRIT 27.8 % (37.0-47.0); HEMOGLOBIN 9.6 gm/dL (12.0-15.0); MCH 35.7 pg (26.0-34.0); MCHC 34.4 g/dL (28.0-37.0); MCV 103.7 fL (80.0-100.0); MPV 9.9 fl. (7.2-11.1); NUCLEATED RBCS 0 /100WBC; PLATELET COUNT* 51 thou/uL (150-400); RBC 2.68 mil/uL (4.20-5.00); RDW-CV 19.9 % (10.5-14.5)
[2018-07-15 10:36] LABS: WBC 1.2 thou/uL (4.0-11.0)
[2018-07-15 10:39] LABS: ALBUMIN 1.7 g/dL (3.4-5.0); ALKALINE PHOSPHATASE 118 U/L (46-116); ANION GAP 13 mmol/L (7-16); BUN 24 mg/dL (7-18); CALCIUM 8.2 mg/dL (8.5-10.1); CHLORIDE 100 mmol/L (98-107); CO2 21 mmol/L (21-32); GLUCOSE 127 mg/dL (70-99); NT-PRO BRAIN NAT PEPTIDE 8659 pg/mL (<300); SGOT 42 U/L (15-37); SGPT 38 U/L (30-65); SODIUM 134 mmol/L (136-145); TOTAL BILIRUBIN 0.8 mg/dL (<0.1-1.0); TROPONIN-I LEVEL <0.06 ng/mL (<0.06)
[2018-07-15 10:45] LABS: APTT 48.5 Seconds (25.0-31.3); INR 4.2; PROTIME 42.3 Seconds (9.20-11.50)
[2018-07-15 13:15] VITALS: BP 110/50
[2018-07-15 13:28] VITALS: BP 108/63
[2018-07-15 13:38] LABS: ABSOLUTE LYMPHOCYTES 0.4 thou/uL (0.8-5.3); ABSOLUTE NEUTROPHILS 0.7 thou/uL (1.6-8.1); ATYPICAL LYMPHS 2 %; METAMYELOCYTES 2 %; MYELOCYTES 2 %
[2018-07-15 13:39] LABS: MACROCYTES 1+; PLATELET ESTIMATE DECREASED; POLYCHROMASIA Occasional
[2018-07-15 13:40] LABS: ANISOCYTOSIS 1+; BURR CELLS 1+; OVALOCYTES Occasional; POIKILOCYTOSIS 1+; SCHISTOCYTES Occasional
[2018-07-15 13:41] LABS: LARGE PLATELETS RARE
--- NOTE | 2018-07-15 14:23 | NUR ---
PATIENT ADMITTED FROM THE ER AT 1328. PATIENT AOX4, FORGETFUL. ABLE TO AMBULATE WITH ASSISTANCE FROM ER CART TO BED. GENERALIZED WEAKNESS NOTED. PATIENT STATES SHE HAS BECOME INCREASINGLY WEAK AT HOME. SHE SAW HER PCP, HE STATED THAT IF SHE DID NOT FEEL BETTER TO COME TO THE HOSPITAL. SHE IS A SOMEWHAT POOR HISTORIAN. CANNOT TELL NURSING IF PCP ORDERED ANYTHING. MEDICATIONS RECONCILED AND REORDERED BY PHYSICIAN. PATIENT AND PATIENT'S DAUGHTER STATED SHE WISHES TO BE A DNR. ORDERED BY DR ROTHMAN. HEART HEALTHY DIET. PATIENT DOES HAVE 1+ SWELLING TO BLE. PATIENT STATES THEY ARE WORSE THAN USUAL. NOTED POOR APPETITE THE LAST WEEK. PATIENT STATES SHE HAS NOT EATING ANYTHING TODAY BUT A BOOST. WAS PROVIDED WITH ANOTHER BOOST AND DRANK 50%. TRACING A-FIB ON SANITATION TECHNICIAN. CARDIOLOGY AND HEMATOLOGY CONSUTLED. FALL PRECAUTIONS IN PLACE. FALL RISK AGREEMENT EXPLAINED AND PATIENT SIGNED. CALL LIGHT WITHIN REACH. WILL CONTINUE TO MONITOR.
--- NOTE | 2018-07-15 15:09 | NUR ---
PATIENT DRANK REMAINING 50% OF SUPPLEMENT. IV INFILTRATED. NEW IV PLACED, 22G IN LFA. REPORT GIVEN TO KOREY PAGE. ALL QUESTIONS ANSWERED.
--- NOTE | 2018-07-15 15:44 | 2DMMODE ---
[place] [address] 2 D/M-MODE ECHOCARDIOGRAM Name: EVERETTE PATTERSON Room: [address] IN [facility]#: [id number] Admission: 07/15/18 Attend Phys: Sowmya Garay, Discharge: Date of : 30 Date of Service: 07/15/18 1544 Report #: [id number] THIS REPORT FOR: //name// APPROVED REPORT Study performed: 07/15/2018 14:57:28 EXAM: Comprehensive 2D, Doppler, and color-flow Echocardiogram Patient Location: In-Patient Room #: [facility] Status: routine BSA: 1.74 HR: 113 bpm BP: 108/63 mmHg Rhythm: NSR Other Information Study Quality: Good Indications Congestive Heart Failure Atrial Fibrillation Chest Pain 2D Dimensions IVSd: 7.75 (7-11mm) LVOT Diam: 22.17 (18-24mm) LVDd: 41.51 mm PWd: 9.33 (7-11mm) Ascending Ao: 34.02 (22-36mm) LVDs: 28.48 (25-40mm) Aortic Root: 33.31 mm Volumes Left Atrial Volume (Systole) LA ESV Index: 40.10 mL/m2 Aortic Valve AoV Peak Chava.: 1.03 m/s AO Peak Gr.: 4.20 mmHg LVOT Max P.31 mmHg AO Mean Gr.: 2.69 mmHg LVOT Mean P.06 mmHg LVOT Max V: 0.76 m/s AO V2 VTI: 17.07 cm LVOT Mean V: 0.47 m/s EMMA (VTI): 2.59 cm2 LVOT V1 VTI: 11.47 cm Mitral Valve MV Decel. Time: 178.19 [place] [address] 2 D/M-MODE ECHOCARDIOGRAM Name: EVERETTE PATTERSON Room: [address] IN ..#: [id number] Admission: 07/15/18 Attend Phys: Sowmya Garay, Discharge: Date of : 30 Date of Service: 07/15/18 1544 Report #: [id number] PHT: 51.67 ms MVA (PHT): 4.26 cm2 TDI Medial E' Chava.: 0.11 m/s Lateral E' Chava.: 0.17 m/s Pulmonary Valve PV Peak Chava.: 0.78 m/s PV Peak Gr.: 2.45 mmHg Tricuspid Valve RAP Estimate: 5.00 mmHg TR Peak Gr.: 28.45 mmHg RVSP: 33.00 mmHg PA Pressure: 33.00 mmHg Left Ventricle The left ventricle is normal size. There is normal LV segmental wall motion. There is normal left ventricular wall thickness. Left ventricular systolic function is normal. The left ventricular ejection fraction is within the normal range. LVEF is 55-60%. This study is not technically sufficient to allow evaluation of the LV diastolic function due to atrial fibrillation. Right Ventricle The right ventricle is normal size. The right ventricular systolic function is normal. Atria Left atrium is mildly dilated. Right atrium is dilated. Aortic Valve The aortic valve is normal in structure. Trace aortic regurgitation. There is no aortic valvular stenosis. Mitral Valve The mitral valve is normal in structure. Mild mitral regurgitation. No evidence of mitral valve stenosis. Tricuspid Valve The tricuspid valve is normal in structure. Mild tricuspid regurgitation. estimate pa pressure 40 mm Hg Pulmonic Valve The pulmonary valve is normal in structure. Mild [place] [address] 2 D/M-MODE ECHOCARDIOGRAM Name: EVERETTE PATTERSON Rodríguez Room: [address]#: [id number] Admission: 07/15/18 Attend Phys: Sowmya Garay, Discharge: Date of : 30 Date of Service: 07/15/18 1544 Report #: [id number] Great Vessels The aortic root is normal in size. IVC is normal in size and collapses >50% with inspiration. Pericardium There is no pericardial effusion. <Conclusion> LVEF is 55-60%. Left atrium is mildly dilated. Right atrium is dilated. Mild mitral regurgitation. Mild tricuspid regurgitation. estimate pa pressure 40 mm Hg <ELECTRONICALLY SIGNED> By: Roshan Ching MD, [facility] 07/15/18 1544 1544 1544 Roshan Ching MD, FAC /INF
[2018-07-15 16:00] VITALS: BP 98/50
--- NOTE | 2018-07-15 16:00 | NUR ---
ASSUMED CARE OF PATIENT APPROX 1500 AFTER RECEIVING REPORT FROM ADMISSION RN. Kt&OX4, ABLE TO COMMUNICATE NEEDS TO STAFF. AGREE WITH ASSESSMENT CHARTED. TRANSFERS TO BSC WITH ASSIST. NEUTROPENIC PRECAUTIONS INITITATED FOR PATIENT WITH WBC 1.2 AND PLATELETS 51. EDUCATION PROVIDED TO PATIENT/FAMILY. CALL LIGHT WITHIN REACH.
--- NOTE | 2018-07-15 16:09 | EKG ---
[place] [address] ELECTROCARDIOGRAM REPORT Name: EVERETTE PATTERSON Room: [address] ADM IN [facility].#: [id number] Admission: 07/15/18 Attend Phys: Sowmya Garay MD Discharge: Date of : 30 Report #: [id number] THIS REPORT FOR: //name// [facility] ED Test Date: 2018-07-15 Test Time: 10:25:36 Pat Name: EVERETTE PATTERSON Department: Room: [facility] Gender: F Pulmonary Fellow: : 1930 Requested By: Venu Kc Order Number: [id number] MD: Roshan Ching Measurements Intervals [place] Rate: 99 P: TN: QRS: -6 QRSD: 67 T: 7 QT: 392 QTc: 504 Interpretive Statements Atrial fibrillation Ventricular premature complex Borderline T abnormalities, diffuse leads Prolonged QT interval Compared to ECG 04/26/2018 07:47:02 Ventricular premature complex(es) now present Prolonged QT interval now present Sinus rhythm no longer present T-wave abnormality still present Electronically Signed On 07-15-2018 16:08:59 CDT by Roshan Ching [email or web address] <ELECTRONICALLY SIGNED> By: Roshan Ching MD, [facility] 07/15/18 1608 1025 1025 Roshan Ching MD, [facility] /EPI
[2018-07-15 19:30] VITALS: BP 99/49
--- NOTE | 2018-07-16 02:31 | NUR ---
RECIEVED REPORT AND ASSUMED CARE AT 1900. SATELLITE INSTALLATION TECHNICIAN IN PLACE. BP SOFT, RESP ELEVATED, OTHER THAN THAT VITAL SIGNS STABLE. PT IS UP WITH ASSIST X 1. PT DENIES ANY PAIN AT THIS TIME. ASSESSMENT COMPLETED DISCUSSED PLAN OF CARE AND PT UNDERSTANDS. BED LOCKED AND CALL LIGHT WITHIN REACH. FALL PRECAUTIONS IN PLACE. HOURLY ROUNDING DONE AND ALL NEEDS MET. NURSING WILL CONTINUE TO MONITOR.
[2018-07-16 04:00] VITALS: BP 105/55
[2018-07-16 04:21] LABS: HEMATOCRIT 26.1 % (37.0-47.0); HEMOGLOBIN 9.1 gm/dL (12.0-15.0); MCHC 34.8 g/dL (28.0-37.0); MCV 103.6 fL (80.0-100.0); MPV 9.5 fl. (7.2-11.1); RBC 2.52 mil/uL (4.20-5.00); RDW-CV 19.8 % (10.5-14.5)
[2018-07-16 04:29] LABS: INR 4.5; PROTIME 45.9 Seconds (9.20-11.50)
[2018-07-16 04:40] LABS: CALCIUM 8.2 mg/dL (8.5-10.1); MAGNESIUM 1.7 mg/dL (1.8-2.4); POTASSIUM 3.6 mmol/L (3.5-5.1)
[2018-07-16 05:40] LABS: WBC 1.2 thou/uL (4.0-11.0)
[2018-07-16 08:25] VITALS: BP 121/49
--- NOTE | 2018-07-16 08:35 | NUR ---
REC'D REPORT FROM NOC RN, ASSUMED CARE OF PATIENT APPROX 0730. ORIENTED TO SELF AND SITUATION, LETHARGIC. ASSESSMENT COMPLETE AND VS OBTAINED. WEED SPRAYER IN PLACE, [place]. O2 97% 2L. UP WITH ASSIST OF 1 FOR TRANSFERS. PT/OT WORKING WITH PATIENT. CALL LIGHT WITHIN REACH. FAMILY IN ROOM. HOURLY ROUNDING FOR SAFETY AND PATIENT NEEDS.
--- NOTE | 2018-07-16 12:01 | NUR ---
Pt is A&O. Resides at home alone. Independent and active. Pt states that she continues to drive short distances, mainly just to her son's home who lives across the road, son drives longer distances. Supportive children, dtr visits daily. Pt uses a RW for mobility, also has a cane and wc available to use if needed. Hx of HH. No hx of SNF. Goal is home at tn. Following.
[2018-07-16 12:07] VITALS: BP 105/51
--- NOTE | 2018-07-16 13:22 | CON ---
[address] [address] CONSULTATION Name: HELENJONAHEVERETTE L Room: [address] IN .R.#: [id number] Admission: 07/15/18 Attend Phys: Sowmya Garay MD Discharge: Date of : 30 Report #: [id number] THIS REPORT FOR: //name// CC: Bernarda Garay DATE OF SERVICE: 07/15/2018 CARDIOLOGY CONSULTATION HISTORY OF PRESENT ILLNESS: The patient is an 88-year-old single white female who I was asked to see in the hospital today after she complained of being weak. The patient's history is obtained from her daughter. The patient has a history of chronic AFib and has been chronically anticoagulated with warfarin. Recently, she complained of pain on the left side of her face. She had no trauma or rash. She went to see her primary care physician 2 days ago. However, she continued to be very weak. She does have some shortness of breath and swelling of her ankles. Her daughter brought her to the hospital and she was admitted. She did note some aching of her left leg. She denied any recent bleeding, fever or cough. She has had no vomiting or diarrhea. PAST MEDICAL HISTORY: She has had tonsillectomy, appendectomy, hysterectomy, cholecystectomy, breast surgery for cancer and hypertension. MEDICATIONS: Her medications consist of the following list: She is on warfarin, atorvastatin, metoprolol and Protonix. ALLERGIES: She has no known drug allergies. FAMILY HISTORY: Positive for heart disease. SOCIAL HISTORY: She is . Lives in [place], [place] by herself. She uses a walker. No smoking or alcohol abuse. REVIEW OF SYSTEMS: She has had no history of stroke, asthma or peptic ulcer disease. She had breast cancer in the past. No chronic skin condition. No psychiatric illness. No kidney disease. No liver disease. She wears glasses. PHYSICAL EXAMINATION: GENERAL: Revealed an elderly frail-appearing female, lying in bed. She appeared in no acute distress. VITAL SIGNS: She had a blood pressure of 110/60, pulse is 100. She is afebrile. HEENT: She is anicteric. Conjunctivae are pale. Mucous membranes are dry. NECK: Neck veins do not appear distended. [place] [address] CONSULTATION Name: EVERETTE PATTERSON Room: [address]#: [id number] Admission: 07/15/18 Attend Phys: Sowmya Garay MD Discharge: Date of : 30 Report #: [id number] CHEST: Reveals crackles in both lung villanueva. CARDIAC EXAMINATION: Irregular, tachycardia. No significant murmur. ABDOMEN: Soft. EXTREMITIES: Have 1+ edema below the mid tibial area. No Homans sign. SKIN: Cool and dry. NEUROLOGICAL EXAMINATION: Nonfocal. DIAGNOSTIC DATA: Her workup in the Emergency Room, she had an ECG that showed atrial fibrillation with a PVC, nonspecific T-wave changes. Her workup in the Emergency Room today, she had a portable chest x-ray that showed mild cardiomegaly, chronic lung changes, some atelectasis. No evidence of pulmonary edema. Previous carotid Doppler study in April after a fall showed no significant stenosis. Previous CT scan of the head in February for headaches showed no acute abnormality. Additional workup, she actually had an echocardiogram in April of this year that showed ejection fraction 62%, left atrial enlargement and mild aortic and mitral regurgitation. LABORATORY DATA: Her lab work, sodium 134, BUN 24 and creatinine 1.0. Liver function studies were normal. Albumin is only 1.7. Troponin 0.06. BNP 8659. Previous LDL was only 62. TSH last August was 3.4. White blood cell count 1.2, hemoglobin 9 and platelet count 51,000. IMPRESSION AND RECOMMENDATIONS: 1. Fatigue. Reason unclear. Suspect secondary to anemia. 2. Permanent atrial fibrillation. Rate controlled with beta-cm. The patient has been chronically anticoagulated. Her INR today is elevated at 4.2. I would hold warfarin at this time. 3. Pancytopenia. I would consider a Hematology consult. 4. Edema, suspect secondary to low albumin. I would consider venous duplex scan of the leg. 5. Hyperlipidemia. The patient is on a statin drug. <ELECTRONICALLY SIGNED> By: Roshan Ching MD, [facility] 07/16/18 1322 1258 2324Dgarth Ching MD, FAC /nt
--- NOTE | 2018-07-16 15:00 | NUR ---
RECEIVED MESSAGE FROM US THAT DR. MCELROY HAS ORDERED BONE MARROW BIOPSY AND WOULD LIKE IT DONE TODAY. CALLED IR, HEAD GRINDER STATES THE IR SCHEDULE DOES NOT ALLOW PATIENT TO BE ACCOMMODATED TODAY BUT WILL BE ON THE SCHEDULE FOR THE PROCEDURE TOMORROW 07/17/18. ORDERS HAVE BEEN PLACED FOR NPO AFTER MN. PATIENT EDUCATED ABOUT PROCEDURE AND WHEN IT WILL BE PERFORMED. DAUGHTER PRESENT FOR DISCUSSION. ANSWERED QUESTIONS TO PATIENT/DAUGHTER SATISFACTION. NEUTROPENIC PRECAUTIONS MAINTAINED.
[2018-07-16 15:39] VITALS: BP 107/57
--- NOTE | 2018-07-16 16:00 | NUR ---
PATIENT EXPRESSES LACK OF APPETITE. PROVIDED EDUCATION ABOUT NUTRITIVE VALUE FOR HEALING. GOAL SET FOR ONE BITE AT A TIME, PATIENT AGREEABLE. PATIENT STATES "YES" TO ENSURE NUTRITION DRINK. PATIENT HAD ENSURE AT BREAKFAST AND LUNCH. PATIENT ENCOURAGED TO CHANGE POSITIONS FREQUENTLY TO MAINTAIN SKIN INTEGRITY. EDUCATION GIVEN R/T PRESSURE CREATED BY WEIGHT OF BODY'S BONY PROMINENCES ON MATTRESS. PATIENT VOICED UNDERSTANDING OF INCREASED RISK FOR PRESSURE WOUNDS. PATIENT EXPRESSES WEAKNESS, RESISTANT TO POSITION CHANGE. REINFORCING EDUCATION NEEDED.
[2018-07-16 20:00] VITALS: BP 91/50
[2018-07-17] VITALS (7 sets, daily range): BP systolic 93–108; BP diastolic 44–59
--- NOTE | 2018-07-17 04:50 | NUR ---
PT ALERT ORIENTED. UP WITH ASSIST OF ONE AND WALKER. TELEMETRY SHOWS SR. O2 AT 2 LITERS NC. NPO FOR BONE MARROW BX TO BE DONE IN IR. TYLENOL GIVEN AT SHIFT CHANGE FOR VALLE.
[2018-07-17 05:27] LABS: ABSOLUTE LYMPHOCYTES 0.2 thou/uL (0.8-5.3); ABSOLUTE MONOCYTES 0.1 thou/uL (0.0-1.2); ABSOLUTE NEUTROPHILS 0.9 thou/uL (1.6-8.1); BASOPHILS 0.3 %; EOSINOPHILS 0.4 %; HEMATOCRIT 24.9 % (37.0-47.0); HEMOGLOBIN 8.8 gm/dL (12.0-15.0); LYMPHOCYTES 15.6 %; MCHC 35.2 g/dL (28.0-37.0); MCV 102.2 fL (80.0-100.0); MONOCYTES 8.6 %; MPV 9.8 fl. (7.2-11.1); NUCLEATED RBCS 0 /100WBC; PLATELET COUNT* 51 thou/uL (150-400); POLYS 75.1 %; RBC 2.43 mil/uL (4.20-5.00); RDW-CV 19.7 % (10.5-14.5)
[2018-07-17 05:35] LABS: WBC 1.2 thou/uL (4.0-11.0)
[2018-07-17 05:38] LABS: PROTIME 54.7 Seconds (9.20-11.50)
[2018-07-17 05:39] LABS: CALCIUM 8.2 mg/dL (8.5-10.1); CREATININE 0.9 mg/dL (0.6-1.3); INR 5.4; POTASSIUM 3.7 mmol/L (3.5-5.1)
--- NOTE | 2018-07-17 08:10 | NUR ---
LOGGER JUST CALLED AND I SPOKE WITH KINGSLEY WHO STATED THAT THE BIOPSY SCHEDULED FOR TODAY WILL NOT BE DONE ANYMORE TODAY ACCORDING TO DR MCELROY HE WANTS TO DO IT OUTPATIENT. THIS NURSE HAS RESUMED THE PT DIET AND PT NOTIFIED
[2018-07-17 14:08] LABS: HEMOGLOBIN 9.1 g/dL (11.1-15.9)
[2018-07-17 19:09] LABS: PROTIME 21.4 Seconds (9.20-11.50)
[2018-07-17 19:10] LABS: INR 2.1
--- NOTE | 2018-07-17 19:16 | NUR ---
pt suddently complains of warm legs. legs are very warm to touch. pt denies pain in legs. dr johnson was paged. new orders received . see chart. night nurse aware.
[2018-07-18] VITALS (7 sets, daily range): BP systolic 94–127; BP diastolic 48–79
[2018-07-18 05:29] LABS: ABSOLUTE LYMPHOCYTES 0.2 thou/uL (0.8-5.3); ABSOLUTE MONOCYTES 0.1 thou/uL (0.0-1.2); BASOPHILS 0.1 %; HEMATOCRIT 25.2 % (37.0-47.0); HEMOGLOBIN 8.9 gm/dL (12.0-15.0); LYMPHOCYTES 13.4 %; MCH 36.8 pg (26.0-34.0); MCHC 35.2 g/dL (28.0-37.0); MCV 104.6 fL (80.0-100.0); MONOCYTES 10.1 %; MPV 9.8 fl. (7.2-11.1); NUCLEATED RBCS 0 /100WBC; PLATELET COUNT* 58 thou/uL (150-400); POLYS 73.4 %; RBC 2.41 mil/uL (4.20-5.00); RDW-CV 19.7 % (10.5-14.5)
[2018-07-18 05:38] LABS: INR 1.2; PROTIME 12.7 Seconds (9.20-11.50)
--- NOTE | 2018-07-18 05:38 | NUR ---
PT CARE ASSUMED AT 1930. SAT MAINTAINED IN FL. ALERT AND ORIENTED X4. CALL LIGHT WITHIN REACH AND BED IN LOW POSITION. DENIES PAIN. HOURLY ROUNDING DONE FOR PT SAFETY. PT SAYS SHE FEELS REALLY WEAK.
[2018-07-18 06:27] LABS: WBC 1.3 thou/uL (4.0-11.0)
[2018-07-18 06:47] LABS: CREATININE 0.7 mg/dL (0.6-1.3); POTASSIUM 3.3 mmol/L (3.5-5.1)
--- NOTE | 2018-07-18 10:45 | NUR ---
ASSUMED PT CARE REPORT RECEIVED FROM NURSE PT IS AOX4 AFIB ON SCOW HAND. ON 2 L NC AND SATURATION IS 94%. LASIX GIVEN. PT ATE 40 % ON BREAKFAST THIS AM. IV ABX GIVEN. IV LINE PATENT. VENOUS US DONE REVEALS OLD CLOT IN L POPLITEAL. PT LEGS ARE WARM TO TOUCH BUT NOT BURNING LIKE LAST NIGHT. PEDAL PULSE FELT +2 ON BILATERAL LOWER EXTREMITIES. PHYSICAL THERAPY WORKS WITH PT. WILL CONTINUE TO MONITOR PT.
--- NOTE | 2018-07-19 03:03 | NUR ---
ASSUMED PT CARE AT 1930. ASSESSMENT COMPLETED CHARTED. ABLE TO MAKE NEEDS KNOWN. FAMILY AT BEDSIDE MOST OF THE TIME. NO C/O PAIN OR DISCOMFORT. [id number] CHARTED. PT RESTING IN BED AT THIS TIME. WILL CONTINUE TO MONITOR.
[2018-07-19 04:00] VITALS: BP 98/55
[2018-07-19 05:05] LABS: INR 1.1; PROTIME 11.5 Seconds (9.20-11.50)
[2018-07-19 05:11] LABS: HEMATOCRIT 25.4 % (37.0-47.0); HEMOGLOBIN 8.9 gm/dL (12.0-15.0); MCH 36.2 pg (26.0-34.0); MCV 103.5 fL (80.0-100.0); MPV 10.5 fl. (7.2-11.1); NUCLEATED RBCS 0 /100WBC; PLATELET COUNT* 57 thou/uL (150-400); RBC 2.45 mil/uL (4.20-5.00); RDW-CV 19.6 % (10.5-14.5)
[2018-07-19 05:23] LABS: CALCIUM 8.1 mg/dL (8.5-10.1); CREATININE 0.9 mg/dL (0.6-1.3); POTASSIUM 3.1 mmol/L (3.5-5.1)
[2018-07-19 08:00] VITALS: BP 97/59
[2018-07-19 08:06] LABS: ABSOLUTE LYMPHOCYTES 0.1 thou/uL (0.8-5.3); ABSOLUTE MONOCYTES 0.1 thou/uL (0.0-1.2); ABSOLUTE NEUTROPHILS 0.8 thou/uL (1.6-8.1)
[2018-07-19 08:07] LABS: TOXIC GRANULATION 3+
[2018-07-19 08:08] LABS: ANISOCYTOSIS 2+; HYPOCHROMASIA 2+; MACROCYTES 2+; PLATELET ESTIMATE DECREASED
--- NOTE | 2018-07-19 10:25 | NUR ---
assumed pt care report received from nurse pt is aox4 afib on printed circuit boards plasma etcher. on 2 l nc. vs taken bp 97/59. nurse tries to geet pt to bedside commode to urinate. pt became sob and heart rate jumps in the 150s, EKG taken and placed in chart . EKG shows afib. traffic control technician paged order for cardizem drip received from doctor. by the time cardizem drip was available to be given. heart rate trended down to 120s. cardizem drip was DC'd from doctor and cardizem PO ordered and was given to pt with now SBP 100s. see chart. pt is now lying down in bed. ate half of her breakfast ensure was given as well as K replacement will continue to monitor pt.
[2018-07-19 11:40] VITALS: BP 118/58
--- NOTE | 2018-07-19 13:49 | EKG ---
[place] [address] ELECTROCARDIOGRAM REPORT Name: EVERETTE PATTERSON Room: [address] ADM IN .R.#: [id number] Admission: 07/15/18 Attend Phys: Sowmya Garay MD Discharge: Date of : 30 Report #: [id number] THIS REPORT FOR: //name// [facility] Test Date: 2018-07-19 Test Time: 07:51:22 Pat Name: EVERETTE PATTERSON Department: Room: [address] Gender: F Adult Psychiatrist: : 1930 Requested By: Roshan Ching Order Number: [id number] MD: Roshan Ching Measurements Intervals [place] Rate: 139 P: MS: QRS: -18 QRSD: 79 T: 33 QT: 304 QTc: 463 Interpretive Statements Atrial fibrillation Borderline left axis deviation Nonspecific T abnormalities, lateral leads Compared to ECG 07/15/2018 10:25:36 Ventricular premature complex(es) no longer present Prolonged QT interval no longer present T-wave abnormality still present Electronically Signed On 07-19-2018 13:48:46 CDT by Roshan Ching [email or web address] <ELECTRONICALLY SIGNED> By: Roshan Ching MD, [facility] 07/19/18 1348 0751 0751 Roshan Ching MD, [facility] /EPI
[2018-07-19 16:00] VITALS: BP 100/46; BP 139/61
[2018-07-19 20:00] VITALS: BP 92/44
[2018-07-20] VITALS (11 sets, daily range): BP systolic 87–112; BP diastolic 41–56
[2018-07-20 04:44] LABS: CALCIUM 8.2 mg/dL (8.5-10.1); CREATININE 0.9 mg/dL (0.6-1.3); INR 1.3; POTASSIUM 3.6 mmol/L (3.5-5.1); PROTIME 13.1 Seconds (9.20-11.50)
[2018-07-20 04:52] LABS: ABSOLUTE MONOCYTES 0.1 thou/uL (0.0-1.2); BASOPHILS 0.4 %; EOSINOPHILS 0.9 %; HEMATOCRIT 24.7 % (37.0-47.0); HEMOGLOBIN 8.7 gm/dL (12.0-15.0); LYMPHOCYTES 16.5 %; MCH 36.3 pg (26.0-34.0); MCHC 35.2 g/dL (28.0-37.0); MCV 103.1 fL (80.0-100.0); MONOCYTES 10.1 %; MPV 10.2 fl. (7.2-11.1); NUCLEATED RBCS 0 /100WBC; PLATELET COUNT* 57 thou/uL (150-400); POLYS 72.1 %; RDW-CV 19.3 % (10.5-14.5)
[2018-07-20 04:55] LABS: ABSOLUTE LYMPHOCYTES 0.1 thou/uL (0.8-5.3); ABSOLUTE NEUTROPHILS 0.6 thou/uL (1.6-8.1)
[2018-07-20 04:58] LABS: WBC 0.9 thou/uL (4.0-11.0)
--- NOTE | 2018-07-20 06:38 | NUR ---
ASSUMED PT CARE AT 1930. ASSESSMENT COMPLETED CHARTED. ABLE TO MAKE NEEDS KNOWN. PT REALLY WEAK AND TIRED TONIGHT, USED BEDPAN TO USE THE RESTROOM. NO C/O PAIN OR DISCOMFORT. FAMILY AT BEDSIDE ALL NIGHT. Y7OEEEM COMPLETED CHARTED. WILL CONTINUE TO MONITOR.
[2018-07-20 10:38] LABS: PLATELET ESTIMATE DECREASED
[2018-07-20 10:39] LABS: HYPOCHROMASIA 1+; LARGE PLATELETS FEW
[2018-07-20 10:40] LABS: ANISOCYTOSIS 1+; MACROCYTES 1+; OVALOCYTES 1+; POIKILOCYTOSIS 1+
[2018-07-20 10:42] LABS: TOXIC GRANULATION 3+
[2018-07-20 10:43] LABS: BURR CELLS 1+; POLYCHROMASIA Occasional; SCHISTOCYTES 1+
--- NOTE | 2018-07-20 17:09 | NUR ---
AOX4. O2 SAT 94% ON 4 L NC. SOB WITH EXERTION, WEAK. DOWN FOR BIOPSY. POST BIOPSY VS IN CHART , SEE CHART. BP LOW BUT NOT CRITICAL. Q2TURN. HEELS ELEVATED, BOGGY HEELS. POOR APPETITE, ENSURE GIVEN. FAMILY AT BEDSIDE. UA SENT DOWN TO LAB. TORRES ORDERED DUE TO URINE RETENTION. UROLOGY ON BOARD. DISCUSS PLAN OF CARE IN PT ROOM. TORRES OUTPUT AT END OF SHIT 1200CC OILVIA COLOR. PO INTAKE 1000CC.
[2018-07-20 18:45] LABS: URINE BILIRUBIN NEGATIVE (Negative); URINE BLOOD 1+ (Negative); URINE CLARITY CLEAR; URINE COLOR YELLOW; URINE GLUCOSE-RANDOM NEGATIVE (Negative); URINE KETONES NEGATIVE (Negative); URINE LEUKOCYTES-REFLEX NEGATIVE (Negative); URINE NITRITE-REFLEX NEGATIVE (Negative); URINE PROTEIN NEGATIVE (Negative)
[2018-07-20 18:51] LABS: CASTS None Seen /LPF (None Seen); CRYSTALS None Seen /LPF (None Seen); SQUAMOUS >10 Many /LPF (0-3); URINE WBC-REFLEX 0-5 Rare /HPF (0-5)
[2018-07-20 18:52] LABS: BACTERIA-REFLEX None Seen /HPF (None Seen); URINE RBC None Seen /HPF (0-2)
[2018-07-21] VITALS: BP 98/46
[2018-07-21 04:00] VITALS: BP 95/45
[2018-07-21 05:35] LABS: INR 1.4; PROTIME 14.6 Seconds (9.20-11.50)
--- NOTE | 2018-07-21 05:36 | NUR ---
ASSUMED PT CARE AT 1930. ASSESSMENT COMPLETED CHARTED. ABLE TO MAKE NEEDS KNOWN WITH FAMILY AT BEDSIDE. NO C/O PAIN OR DISCOMFORT. STATES SHE IS REALLY TIRED AND [id number] DONE CHARTED. VSS. TURNED UP O2 DUE TO NEED. TORRES DRAINING WITH NO ISSUES. WILL CONTINUE TO MONITOR.
[2018-07-21 05:51] LABS: ABSOLUTE LYMPHOCYTES 0.2 thou/uL (0.8-5.3); ABSOLUTE MONOCYTES 0.2 thou/uL (0.0-1.2); ABSOLUTE NEUTROPHILS 0.8 thou/uL (1.6-8.1); BASOPHILS 0.3 %; EOSINOPHILS 0.5 %; HEMATOCRIT 25.7 % (37.0-47.0); HEMOGLOBIN 8.9 gm/dL (12.0-15.0); LYMPHOCYTES 18.3 %; MCH 35.9 pg (26.0-34.0); MCHC 34.6 g/dL (28.0-37.0); MONOCYTES 13.7 %; MPV 10.4 fl. (7.2-11.1); NUCLEATED RBCS 1 /100WBC; PLATELET COUNT* 56 thou/uL (150-400); POLYS 67.2 %; RBC 2.47 mil/uL (4.20-5.00); RDW-CV 19.3 % (10.5-14.5)
[2018-07-21 05:57] LABS: WBC 1.2 thou/uL (4.0-11.0)
[2018-07-21 06:28] LABS: CALCIUM 7.8 mg/dL (8.5-10.1); CREATININE 0.8 mg/dL (0.6-1.3)
[2018-07-21 08:39] VITALS: BP 95/47
[2018-07-21 13:31] VITALS: BP 109/43
--- NOTE | 2018-07-21 16:23 | NUR ---
PT PROGRESSING TOWARDS GOALS THIS SHIFT. PARTICIPATED WITH PT/OT. NO C/O PAIN THIS SHIFT. NO OTHER CONCERNS AT THIS TIME. CLWR. WCTM.
[2018-07-21 17:25] VITALS: BP 98/47
[2018-07-21 20:00] VITALS: BP 104/46
[2018-07-22] VITALS: BP 93/48
[2018-07-22 04:00] VITALS: BP 114/55
--- NOTE | 2018-07-22 05:34 | NUR ---
ASSUMED PT CARE AT 1930. ASSESSMENT COMPLETED CHARTED. ABLE TO MAKE NEEDS KNOWN. PT DAUGHTER AT BEDSIDE, NO C/O PAIN OR DISCOMFORT, A2OCTMB COMPLETED CHARTED. PT JUST STATED SHE WAS TIRED AND THAT SHE WAS READY FOR BED. PT HAS A FLAT AFFECT, TORRES IN PLACE DRAINING WITHOUT DIFFICULTIES. VSS. WILL CONTINUE TO MONITOR.
[2018-07-22 05:50] LABS: ABSOLUTE LYMPHOCYTES 0.2 thou/uL (0.8-5.3); ABSOLUTE MONOCYTES 0.2 thou/uL (0.0-1.2); ABSOLUTE NEUTROPHILS 0.9 thou/uL (1.6-8.1); BASOPHILS 0.4 %; EOSINOPHILS 1.2 %; HEMATOCRIT 25.5 % (37.0-47.0); HEMOGLOBIN 8.9 gm/dL (12.0-15.0); INR 1.5; LYMPHOCYTES 16.8 %; MCH 35.9 pg (26.0-34.0); MCHC 34.8 g/dL (28.0-37.0); MCV 103.2 fL (80.0-100.0); MONOCYTES 15.1 %; MPV 11.7 fl. (7.2-11.1); NUCLEATED RBCS 1 /100WBC; PLATELET COUNT* 50 thou/uL (150-400); POLYS 66.5 %; PROTIME 15.7 Seconds (9.20-11.50); RBC 2.47 mil/uL (4.20-5.00); RDW-CV 19.2 % (10.5-14.5)
[2018-07-22 06:00] LABS: WBC 1.4 thou/uL (4.0-11.0)
[2018-07-22 06:12] LABS: CALCIUM 7.7 mg/dL (8.5-10.1); CREATININE 0.8 mg/dL (0.6-1.3); POTASSIUM 4.6 mmol/L (3.5-5.1)
[2018-07-22 08:00] VITALS: BP 107/68
--- NOTE | 2018-07-22 09:15 | NUR ---
Nutrition: assessment for LOS. Dx: CHF, anemia. Wt up from admit at 144 lb and up from February wt of 147 lb. Wt about a year ago was [address] eval. BUN 35, albumin 1.7. Meds reviewed, lasix discontinued 07/19. Intake 20-50% at meals, 75% morning snacks, per noted pt has received Ensure occ. Will add Ensure to evening tray. Assessed at mild nutrition risk.
[2018-07-22 11:44] VITALS: BP 92/38
--- NOTE | 2018-07-22 12:01 | NUR ---
Referral sent to [facility], [facility] to initiate auth, if they are able to accept Pt for skilled.
[2018-07-22 16:00] VITALS: BP 95/44
[2018-07-22 20:00] VITALS: BP 105/54
--- NOTE | 2018-07-22 21:19 | CON ---
[address] [address] CONSULTATION Name: LEONARDOEVERETTE Rodríguez Room: [address] IN M.R.#: [id number] Admission: 07/15/18 Attend Phys: Sowmya Garay MD Discharge: Date of : 30 Report #: [id number] THIS REPORT FOR: //name// CC: Bernarda Garay DICTATED BY: Tavia Nugent [facility] DATE OF SERVICE: 07/16/2018 Please note at the time of this dictation, the patient was seen and physically examined by myself. REFERRING PHYSICIAN: Sowmya Garay MD. REASON FOR CONSULTATION: Anemia. HISTORY OF PRESENT ILLNESS: This is an 88-year-old female who presented to the hospital with having complaints of pain on her left side. She was having increased shortness of breath and feeling very weak. She was noticing swelling of her ankles, so she was brought to the hospital for further evaluation. She denies any nausea, vomiting, fever or chills or any abdominal pain. She states her appetite has been fairly well. She denies any acid reflux issues. She does take warfarin for chronic AFib and has denied any NSAID use with taking warfarin. The patient states her bowels have been moving daily, soft and formed with no evidence of any bright red blood or melena. The patient did have an EGD back in April 2016 and noted to have a healed antral ulcer that tested positive for pylori, which she was treated and biopsies were negative at that time and a small hiatal hernia. Last colonoscopy was in 2011. She had a tubular adenoma, diverticulosis, and hemorrhoids in 2017. She refused to have a colonoscopy at that time. ALLERGIES: No known drug allergies. MEDICATIONS: From home include warfarin, atorvastatin, metoprolol and Protonix. PAST MEDICAL HISTORY: Includes breast cancer, hypertension, congestive heart failure, AFib. PAST SURGICAL HISTORY: Tonsillectomy, appendectomy, hysterectomy, cholecystectomy, and breast surgery. FAMILY HISTORY: Negative for any GI or female cancers. SOCIAL HISTORY: She is . She lives by herself. [place] [address] CONSULTATION Name: EVERETTE PATTERSON Room: [address]#: [id number] Admission: 07/15/18 Attend Phys: Sowmya Garay MD Discharge: Date of : 30 Report #: [id number] tobacco use and she gets around via a walker. REVIEW OF SYSTEMS: Twelve-point review of systems is essentially negative except what is mentioned in the HPI. PHYSICAL EXAMINATION: VITAL SIGNS: Temperature 37.3, pulse 100, respirations 17, blood pressure 121/49. HEART: Irregular rate and rhythm. LUNGS: Diminished. The patient is very tachypneic with any movements and currently on oxygen at 2 liters. ABDOMEN: Soft, positive bowel sounds in all 4 quadrants with no masses or tenderness noted. LABORATORY DATA: Hemoglobin noted in 04/2018 to be 12.5. She is now 9.1 with a white count of 1.2 and platelets of 48. It was also noted in April, her white count was 2.4 and platelet was 109. In looking back at her labs in 08/2017, it was all completely normal. BNP was 8659. Iron is 35, TIBC is 146, B12 is 19. She recently had an echo and it shows an EF of 55-60%. IMPRESSION: 1. Acute anemia without any overt bleeding. 2. Pancytopenia. 3. Anticoagulant therapy, warfarin secondary to pulmonary embolism. 4. History of breast cancer. PLAN: 1. Hematology onboard and plan for a bone marrow tomorrow. 2. No plans for any endoscopy studies at this time. 3. Further recommendations to be made after Dr. Alaniz sees the patient later today. Thank you for allowing us to participate in this patient's care. Please do not hesitate to call with any questions in regard to this consult. ADDENDUM I have seen and examined the patient with plan that has been outlined by our nurse practitioner, Tavia Nugent. The patient has not had any history of any bleeding that would be attributable to her anemia. She has evidence for pancytopenia with history of breast cancer and is scheduled to undergo bone marrow biopsy tomorrow. I agree that this is the next step in her evaluation and if necessary, we [place] [address] CONSULTATION Name: HELENJONAHEVERETTE L Room: [address]#: [id number] Admission: 07/15/18 Attend Phys: Sowmya Garay MD Discharge: Date of : 30 Report #: [id number] studies if there is any evidence for iron deficiency anemia. We will hold off on any endoscopic studies at this time. <ELECTRONICALLY SIGNED> By: Armin Alaniz DO 07/22/18 2119 1205 [id number] Alaniz DO /dusty
[2018-07-23] VITALS: BP 100/55
[2018-07-23 04:00] VITALS: BP 94/48
--- NOTE | 2018-07-23 05:24 | NUR ---
ASSUMED CARE OF PT AFTER REPORT AT 1930. PT A&OX4. WEAK. VSS. PHYSICAL ASSESSMENT COMPLETED AND CHARTED. PT ON O2 AT 6L WITH 85% O2 SAT. INCREASED O2 TO 8L WITH 88% THEN INCREASED AGAIN O2 TO 10L WITH 92% O2 SAT. PT TRACING AFIB ON TELE. PT WITH TORRES TO DEPENDENT DRAIN. PT TURNED TO SIDES. TRANSFUSED 1 UNIT OF BLOOD PROPERLY TYPED AND CROSSMATCHED. MAINTAINED ON NEUTROPONIC PREACUTION. HOURLY ROUNDING OBSERVED. PT RESTED WELL ON BED. CALL LIGHT WITHIN REACH.
--- NOTE | 2018-07-23 05:28 | NUR ---
ASSUMED CARE OF PT AFTER REPORT AT 1930. PT A&OX4. WEAK. VSS. PHYSICAL ASSESSMENT COMPLETED AND CHARTED. PT ON O2 AT 6L WITH 85% O2 SAT. INCREASED O2 TO 8L WITH 88% THEN INCREASED AGAIN O2 TO 10L WITH 92% O2 SAT. PT TRACING AFIB ON TELE. PT WITH TORRES TO DEPENDENT DRAIN. PT TURNED TO SIDES. MAINTAINED ON NEUTROPENIC PRECAUTION. HOURLY ROUNDING OBSERVED. PT RESTED WELL ON BED. FAMILY AT BEDSIDE. CALL LIGHT WITHIN REACH.
[2018-07-23 05:43] LABS: INR 1.6; PROTIME 16.7 Seconds (9.20-11.50)
[2018-07-23 08:00] VITALS: BP 107/52
--- NOTE | 2018-07-23 10:11 | NUR ---
3718 ASSUMED CARE OF PATIENT. PLEASE SEE DOCUMENTED ASSESSMENT. PT IS WEAK AND SEEMS RELUCTANT TO MAKE EYE CONTACT. OXYGEN FLOW METER IS AT 11LPM. A FIB PER MONITOR. DAUGHTER PRESENT
[2018-07-23 11:29] VITALS: BP 92/37
[2018-07-23 15:29] VITALS: BP 86/38
--- NOTE | 2018-07-23 15:43 | NUR ---
Faxed updated therapy notes to [facility]
--- NOTE | 2018-07-23 17:19 | NUR ---
NO PROGRESSION TOWARDS GOALS. PATIENT HAS NOT CONSUMED ANY OF MEAL TRAYS. HAS TAKEN SUPPLEMENT AND A ROOT BEER FLOAT FROM FAMILY. ANTIBIOTICS ADJUSTED BY DR MAY. HAD ONE STOOL. REMAINS ON 11LPM HIGH FLOW CANNULA. HAS NOT BEEN OUT OF BED. REMAINS IN ATRIAL FIBRILLATION. COUMADIN RESUMED TONIGHT
[2018-07-23 21:02] VITALS: BP 98/48
[2018-07-24] VITALS (7 sets, daily range): BP systolic 94–110; BP diastolic 41–50
[2018-07-24 04:07] LABS: INR 1.7; PROTIME 17.1 Seconds (9.20-11.50)
--- NOTE | 2018-07-24 06:49 | NUR ---
PT IS ABLE TO COMMUNICATE HER NEEDS TO STAFF EFFECTIVELY. SHE HAS DENIED THE NEED FOR PAIN MEDICATION UP TO THIS TIME. TORRES IS PATENT UP TO THIS TIME. NEUTROPENIC PRECAUTIONS MAINTAINED. CODE STATUS IS DNR. PT RESUMED WARFARIN THERAPY 07/23/18.
--- NOTE | 2018-07-24 09:15 | NUR ---
ASSUMED CARE OF PT THIS AM AROUND 07- POWER BALLAST MACHINE OPERATOR IN PLACE ORDERED, TRACING A-FIB RATE CONTROLLED- UPON ASSESSMENT PT NOTED TO BE RESTING IN BED, DAUGHTER AT SIDE- PT A&O X4- TORRES IN PLACE D/D CLEAR OLIVIA URINE, CONTINENT VS INCONTINENT OF BOWEL- RUL AND LOWER CTA, LEFT UP CLEAR AND LOWER DIMINISHED- DYSPNEA NOTED ON EXERTION- VSS, O2 SAT 92% ON 12L HF NC- ABD SOFT/ROUND/NON-TENDER, BS X 4 QUADS- PT REPORTS LAST BM X2 07/23/18, REFUSED MIRALAX THIS AM-ASSISTANCE REQUIRED WITH MEALS, POOR PO INTAKE NOTED- ENSURE WITH MEALS- BLE ANKLE/FOOT EDEMA NOTED- CALL LIGHT AND PERSONAL BELONGINGS WITH IN REACH- HOURLY ROUNDS IN PLACE R/T SAFETY/NEEDS- ALL NEEDS MET AT THIS TIME-WCTM
--- NOTE | 2018-07-24 10:46 | NUR ---
EMANUEL spoke with Pt and dtr in room, Pt no longer wants to go to skilled, wants to return home with 24 hour care from her family, dtr/sons in agreement. EMANUEL received a call from Edmond at [facility], informing that Pt's dtr contacted them and wants to use them for Pt at me. EMANUEL informed Edmond, that we presently do not have a hospice order, Edmond plans to f/u with CM on Friday. EMANUEL updated Kayla at [facility] that we are not looking at skilled at this time, will remain in contact in case plan changes. Following.
--- NOTE | 2018-07-24 17:13 | NUR ---
PT CURRENTLY RESTING IN BED, DAUGHTER AT SIDE- IN SCHOOL SUSPENSION COORDINATOR IN PLACE ORDERED, TRACING A-FIB- IV TO RIGHT FA NAD RIGHT WRIST INTACT AND SL- POOR PO INTAKE CONTINUES WITH MEALS- ENSURE GIVEN WITH MEALS- MRSA NOTED TO REPORT NEGATIVE THIS SHIFT- WORKING WITH THERPIES PRESCIBED, ADVANCING TOWARDS GOALS JALYN- DENIES ANY C/O PAIN/DISCOMFORT AT THIS TIME- MAKES NEEDS KNOWN- ALL NEEDS MET AT THIS TIME-WCTM
[2018-07-25 04:00] VITALS: BP 106/43
[2018-07-25 05:26] LABS: INR 1.8; PROTIME 18.7 Seconds (9.20-11.50)
--- NOTE | 2018-07-25 06:39 | NUR ---
PT IS ABLE TO COMMUNICATE HER NEEDS TO STAFF EFFECTIVELY. SHE HAS DENIED THE NEED FOR PAIN MEDICATION UP TO THIS TIME. BRIAN PATENT. CODE STATUS IS DNR.
[2018-07-25 08:08] VITALS: BP 106/52
--- NOTE | 2018-07-25 09:56 | NUR ---
ASSUMED CARE OF PT THIS AM AROUND 0715- JOURNEYMAN MACHINIST IN PLACE ORDERED, TRACING A-FIB/RATE CONTROLLED-UPON ASSESSMENT PT NOTED TO BE RESTING IN BED, AT SIDE- PT A&O X4, FORGETFULL- TORRES IN PLACE D/D CLEAR OLIVIA URINE, INCONTINENT OF BOWEL- Q [address] INDICATED- LCTA, DYSPNEA NOTED ON EXERTION- O2 SAT 95% ON 12L HF NC-ABD SOFT/ROUND/NON-TENDER, BS X 4 QUADS- SCANT BM NOTED THIS AM- IV NOTED TO RIGHT FA AND RIGHT WRIST INTACT AND SL- IV ABT GIVEN THIS AM PRESCRIBED- NEUTROPENIC PRECATIONS IN PLACE INDICATED- ASSISTANCE REQUIRED WITH MEALS, POOR PO INTAKE NOTED- ENSURE WITH MEALS- COUMADIN NOTED TO BE INCREASED TO 2MG THIS AM PER - CHEST X-RAY ORDERED- 2+ LATOYA FEET/ANKLE EDEMA NOTED, LEG ELEVATION IN PLACE- PT DENIES ANY C/O PAIN/DISCOMFORT AT THIS TIME- CALL LIGHT AND PERSONAL BELONGINGS WITH IN REACH- HOURLY ROUNDS IN PLACE R/T SAFETY/NEEDS- ALL NEEDS MET AT THIS TIME-WCTM
[2018-07-25 12:00] VITALS: BP 105/53
[2018-07-25 16:00] VITALS: BP 101/47
--- NOTE | 2018-07-25 16:40 | NUR ---
PT CURRENLTY RESTING IN BED, DAUGHTER AT SIDE VISITING- REGIONAL PROGRAM MANAGER IN PLACE ORDERED, TRACING A-FIB/RATE CONTROLLED- IV TO RIGHT FA AND WRIST INTACT AND SL- POOR PO INTAKE CONTINUES- MEGACE 40MG QID STARTED THIS SHIFT PRESCIBED- CHEST X-RAY COMPLETED THIS SHIFT WITH RESULTS NOTED IN MEDI-TECH- Q [address], PT REFUSES AT TIMES R/T COMFORT WITH DAUGHTER AT BEDSIDE AND AWARE- CALL LIGHT AND PERSONAL BELONGINGS WITH IN REACH- HOURLY ROUNDS IN PLACE R/T SAFETY/NEEDS- ALL NEEDS MET AT THIS TIME-WCTM
[2018-07-25 20:54] VITALS: BP 117/50
[2018-07-26 00:52] VITALS: BP 92/37
[2018-07-26 04:00] VITALS: BP 112/56
[2018-07-26 04:55] LABS: HEMATOCRIT 25.7 % (37.0-47.0); HEMOGLOBIN 8.7 gm/dL (12.0-15.0); MCH 35.8 pg (26.0-34.0); MCHC 33.9 g/dL (28.0-37.0); MCV 105.5 fL (80.0-100.0); RBC 2.44 mil/uL (4.20-5.00); RDW-CV 18.6 % (10.5-14.5)
[2018-07-26 05:05] LABS: WBC 1.6 thou/uL (4.0-11.0)
[2018-07-26 05:22] LABS: CALCIUM 7.6 mg/dL (8.5-10.1); CREATININE 0.7 mg/dL (0.6-1.3); MAGNESIUM 2.5 mg/dL (1.8-2.4)
[2018-07-26 05:23] LABS: INR 2.2; PROTIME 22.5 Seconds (9.20-11.50)
--- NOTE | 2018-07-26 07:42 | NUR ---
PT IS ABLE TO COMMUNICATE HER NEEDS TO STAFF EFFECTIVELY. CURRENT PAIN MEDICATION REGIMEN HAS BEEN ADEQUATE FOR CONTROLLING HER PAIN UP TO THIS TIME. POSSIBLE DISCHARGE TO A SNF TODAY; PT HAS STATED THAT SHE WANTS TO GO.
[2018-07-26 08:27] VITALS: BP 107/61
--- NOTE | 2018-07-26 09:37 | NUR ---
ASSUMED CARE OF PT THIS AM AROUND 07- TRAVELING STOREKEEPER IN PLACE ORDERED, A-FIB/RATE CONTROLLED- UPON ASSESSMENT PT NOTED TO BE RESTING IN BED, DAUGHTER AT SIDE AND ACTIVE IN CARES-PT A&O X4, WITH FLAT AFFECT- TORRES IN PLACE D/C CLEAR OLIVIA URINE, INCONTINENT OF BOWEL- Q [address] INDICATED THIS SHIFT- LCTA, DYSPNEA NOTED ON EXERTION- VSS, O2 SAT 96% ON 12L HF NC- ABD SOFT/FLAT/NON-TENDER, BS X 4 QUADS- BM NOTED THIS AM- IV NOTED TO RIGHT FA AND RIGHT WRIST SL- ASSISTANCE REQUIRED WITH MEALS, POOR PO INTAKE NOTED- ENSURE GIVEN WITH MEALS- 2+ LATOYA FEET/ANKLE EDEMA NOTED, ELEVATION IN PLACE- DENIES ANY C/O PAIN/DISCOMFORT AT THIS TIME- CALL LIGHT AND PERSONAL BELONGINGS WITH IN REACH- HOURLY ROUNDS IN PLACE R/T SAFETY/NEEDS- ALL NEEDS MET AT THIS TIME-WCTM
--- NOTE | 2018-07-26 12:40 | NUR ---
FAMILY ASKING FOR HOSPICE CONSULT GALA. SPOKE TO [facility]. SUSANNE WITH HOSPICE IS GOING TO VISIT WITH FAMILY THIS AFTERNOON
[2018-07-26 16:19] VITALS: BP 112/51
--- NOTE | 2018-07-26 16:35 | NUR ---
PT CURRENTLY RESTING IN BED, DAUGHTER AT SIDE VISITING- TELEHEALTH NURSE IN PLACE ORDERED, TRACING A-FIB/RATE CONTROLLED- IV TO RIGHT FA AND RIGHT WRIST INTACT AND SL- CONTINUED POOR PO INTAKE NOTED THIS SHIFT- ENSURE WITH MEALS- COUMADIN NOTED TO BE DECREASED TO 1MG THIS SHIFT- FAMILY EXPRESSED WISHES TO OF WANTING TO D/C TO HOME WITH HOSPICE- [facility] AND HERE TO SPEAK WITH DAUGHTER THIS SHIFT AT THIS TIME TO HELP ARRANGE FOR POSSIBLE D/C TO HOME SHAUN- BONE MARROW BIOPSY STILL PENDING- Q HOUR TURNS IN PLACE AT PT/DAUGHTER DESCREATION THIS SHIFT R/T COMFORT- PT DENIES ANY C/O PAIN/DISCOMFORT AT THIS TIME-ALL NEEDS MET AT THIS TIME-WCTM
[2018-07-26 19:40] VITALS: BP 104/60
[2018-07-27] VITALS: BP 141/57
[2018-07-27 04:00] VITALS: BP 106/55
--- NOTE | 2018-07-27 04:06 | NUR ---
ASSUMED CARE OF PT AT 1900. PT IS ORIENTED X'S 2-3. VSS. PERRLA. NO COMPLAINTS OF PAIN. HOSPICE WAS HERE TO SEE PT. PT IS POSSIBLY GOING TO HOSPICE TOMORROW. DAUGHTER IS WITH PT AT THIS TIME. PT IS RESTLESS AT TIME. ATIVAN GIVEN. PTS OXYGEN WAS WEANED TO 10 LITERS. PT IS IN AFIB ON THE TELEMETRY. PT IS RESTING COMFORTABLY IN BED. RESPIRATIONS ARE EVEN AND NONLABORED. WILL CONTINUE TO MONITOR PT.
[2018-07-27 05:37] LABS: INR 2.7; PROTIME 27.7 Seconds (9.20-11.50)
[2018-07-27 07:15] VITALS: BP 104/44
--- NOTE | 2018-07-27 07:59 | CON ---
[address] [address] CONSULTATION Name: LEONARDOEVERETTE L Room: [address] [place] .R.#: [id number] Admission: 07/15/18 Attend Phys: Sowmya Garay MD Discharge: Date of : 30 Report #: [id number] THIS REPORT FOR: //name// CC: Bernarda Garay DATE OF SERVICE: 07/23/2018 ATTENDING PHYSICIAN: Hamzah Washington DO. REASON FOR EVALUATION: Pancytopenia, likely secondary to myelodysplastic syndrome complicated by pneumonia, profound weakness, encephalopathy. HISTORY OF PRESENT ILLNESS: Chart reviewed, patient examined. This is an 88-year-old woman with extensive medical history who was admitted through the Emergency Room, had been hospitalized in April, presents with progressive weakness and bilateral lower extremity edema. Apparently at that time, he denied any nausea, vomiting, any dyspnea. On evaluation, she was noted to be pancytopenic, seen several consultants including Cardiology, GI, Hematology/Oncology. Chest x-ray showed evidence of bilateral infiltrates. She has been placed on antimicrobial therapy with levofloxacin without significant improvement. She has not been febrile and has a very ineffective cough at this point. She has had poor appetite with concomitant small amounts of p.o. intake. Bone marrow biopsy results are pending. Most recent chest x-ray did show worsening patchy alveolar infiltrates bilaterally with small bilateral effusions. At this point, she denies significant amount of pain, although she is difficult to arouse. ALLERGIES: None known. MEDICATIONS: Currently include warfarin, levofloxacin, diltiazem, tamsulosin, potassium chloride, metoprolol, atorvastatin, pantoprazole. PAST MEDICAL HISTORY: History of hypertension, history of pulmonary embolus, hypercoagulable state, pulmonary hypertension, atrial fibrillation, coronary artery disease, peptic ulcer disease and lung mass. SOCIAL HISTORY: Nonsmoker, no ethanol. FAMILY HISTORY: Noncontributory. REVIEW OF SYSTEMS: Not reliably obtained. PHYSICAL EXAMINATION: GENERAL: She appears chronically ill. She is lying in left lateral decubitus position, does arouse briefly. Unclear that [place] [address] CONSULTATION Name: EVERETTE PATTERSON Room: [address]#: [id number] Admission: 07/15/18 Attend Phys: Sowmya Garay MD Discharge: Date of : 30 Report #: [id number] Flio-wf-nopdxute distress, appears chronically ill and undernourished. VITAL SIGNS: Temperature 96.9, pulse 85, respirations 17, blood pressure is 92/37. SKIN: Warm, dry, I do not see any rashes. HEENT: Normocephalic. Extraocular muscles intact. NECK: Supple. LUNGS: Diminished breath sounds. She does have bilateral crackles. HEART: Irregularly irregular. I do not appreciate any murmur. ABDOMEN: Soft, nontender, nondistended. There are no peritoneal signs. GENITOURINARY AND RECTAL: Deferred. LABORATORY DATA: Most recent protime of 16.7, INR of 1.6. Electrolytes: Sodium 134, potassium 4.6, chloride 97, bicarbonate is 29, BUN and creatinine 35 and 0.8. CBC: White count of 1.4, H and H 8.9 and 25.5, platelets of 50, absolute neutrophil count of 900, ANC of 200. Chest x-ray as described above. Patchy alveolar infiltrates have worsened. Urinalysis 0-5 white cells. Bone marrow biopsy results are pending. ASSESSMENT AND PLAN: Pancytopenia, likely on the basis of myelodysplastic syndrome, awaiting confirmation with bone marrow studies, complicated by radiograph evidence of pneumonitis. I think we will adjust therapy to include cefepime. Certainly at risk for nosocomial-related infectious complications. At this point, I do not see any other pyogenic focus of infection. Overall, I think she likely has very little reserve. It is not clear that there is significant reversibility to her overall situation at this point. This was discussed with her daughter. Continue supportive measures. <ELECTRONICALLY SIGNED> By: Tito Keita MD 07/27/18 [id number] Keita MD /nt
--- NOTE | 2018-07-27 10:00 | NUR ---
INITIAL ASSESSMENT COMPLETED CHARTED. PT TRACING AFIB ON MONITOR. PT UNABLE TO VERBALIZE NEEDS AND IS MINIMALLY RESPOSIVE. PT TITRATED TO 4LPM WITH ADEQUATE O2 SARTS. WILL D/C HOME WITH DAUGHTER TO HOSPICE. FALL PRECAUTIONS AND HOURLY ROUNDING IN PLACE FOR PT SAFETY. DAUGHTER AT BEDSIDE. CLWR.
[2018-07-27] MEDS ORDERED: MEGESTROL ACETA40 MG PO (11:05)
[2018-07-27] MEDS ORDERED: CARDIZEM60 MG PO (11:05)
[2018-07-27] MEDS ORDERED: FLOMAX0.4 MG PO (11:05)
[2018-07-27 11:50] VITALS: BP 104/44
[2018-07-27 12:03] VITALS: BP 99/57
[2018-07-27 12:52] VITALS: BP 99/57
--- NOTE | 2018-07-27 12:53 | NUR ---
D/C FEEDER CATCHER SPOKE TO THE PATIENT'S DTR TO DISCUSS DISCHARGE PLANNING AND THE PATIENT'S D/C HOME TODAY WITH [facility]. PATIENT'S DTR INFORMS THAT ALL DME HAS BEEN DELIVERED TO THE PATIENT'S HOME. D/C FEEDER CATCHER SPOKE TO LAMIN WITH [facility] TO INFORM OF THE PATIENT'S TIME OF D/C AND FAXED THE PATIENT'S D/C ORDERS. D/C FEEDER CATCHER SPOKE TO [facility] AND ARRANGED TRANSPORT FOR 1330, AND FAXED PATIENT TRANSFER FORM. D/C FEEDER CATCHER INFORMED THE RN IN-CHARGE OF THE PATIENT OF THE PATIENT'S TIME OF TRANSPORT. RN IN AGREEMENT. CM WILL REMAIN AVAILABLE TO ASSIST AND FOLLOW NEEDED. [facility] PHONE:[phone]
--- NOTE | 2018-07-28 17:06 | PATH ---
[address] [address] PATHOLOGY RPT PROCEDURE Name: GAIL PATTERSON Rodríguez Room: [address] IN .R.#: [id number] Admission: 07/15/18 Date of : 30 Discharge: 07/27/18 Report #: [id number] Path Case #: [id number] [facility] Accession Number: [id number] . 01 Material submitted: . PART A: bone - BONE MARROW BIOPSY PART B: bone - BONE MARROW CLOT PART C: bone - BONE MARROW ASPIRATE SLIDES PART D: bone - PERIPHERAL BLOOD SMEAR PART E: bone - BONE MARROW FLOW . 01 Clinical history: . CHF exacerbation/anemia . 88-year-old woman with pancytopenia. . 02 Diagnosis: Bone marrow aspirate, biopsy, cell clot and peripheral blood: - Peripheral blood with pancytopenia including moderate macrocytic anemia, moderate to severe leukopenia, and moderate thrombocytopenia. - Normocellular to mildly hypercellular bone marrow with trilineage hematopoiesis, trilineage dyspoiesis, left shifted maturation and increased blasts (myeloblasts and erythroblasts). - See comment. (FORTINOW:mendoza 07/28/2018) . Please see included [facility] report [id number]. AZJ/07/28/2018 . 02 Comment: Overall the bone marrow is normocellular to mildly hypercellular for the patient's age with trilineage hematopoiesis, trilineage dyspoiesis, left shifted maturation and increased blasts. There are 13% blasts by morphology which is composed of both myeloblasts and erythroblasts. Immunohistochemical staining and flow cytometric analysis estimate the blast percentage at less than 10%. 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 The cytoplasmic vacuolization can be seen in myelodysplasia as well as vitamin and mineral deficiencies (copper and zinc deficiency). There is no diagnostic evidence of lymphoma or acute leukemia in the material submitted. Correlation with clinical history, additional laboratory data and cytogenetics is required. . The case is co-reviewed with Dr. Zarina Potts. The case was discussed with Dr. Freitas on 07/23/2018 at 11:45 AM and again on 07/27/2018 at approximately 3:00 PM. . (CLW:[facility] 07/28/2018) . 02 [place] [address] PATHOLOGY RPT PROCEDURE Name: GAIL PATTERSON Room: [address] IN [id number] Admission: 07/15/18 Date of : 30 Discharge: 07/27/18 Report #: [id number] Path Case #: [id number] Electronically signed: . Bree Gipson MD, Pathologist NPI- [id number] . 01 Gross description: . A. The specimen is received in formalin, labeled "Gasquet, Gail, core" and consists of a james-brown bone core measuring 1.1 cm in length and 0.2 cm in diameter which is entirely submitted in A1 following decalcification. . B. The specimen is received in formalin, labeled "Gasquet, Gail, clot" and consists of a cylindrical blood clot measuring 3.2 x 1.8 x 1.8 cm which is entirely submitted in B1-B4. (SDY; 07/20/2018) SYU/SYU . 02 Microscopic: . CBC Data (07/20/18): WBC 900 /uL, RBC 2.40, hemoglobin 8.7 g/dL, hematocrit 24.7%, MCV 103.1 fL, MCH 36.3 pg, MCHC 35.2 g/dL, RDW 19.3%, and platelet count 57,000 /uL. White blood cell differential: segs 70%, bands 2%, lymphs 26%, monos 2%. . Peripheral Blood Smear: Cytomorphological examination of the Lee's stained peripheral blood smear confirms the provided data. Red blood cells show moderate macrocytic anemia with mild anisopoikilocytosis. No schistocytes or microspherocytes are seen. White blood cells are moderately decreased in number. They are predominantly granulocytes and lymphocytes. Granulocytes are predominantly neutrophils with dyspoietic changes including abnormal nuclear lobation. Lymphocytes are predominantly small, round, and mature appearing with condensed chromatin and scant cytoplasm with admixed large granular lymphocytes and reactive appearing lymphocytes. Monocytes are mature. Platelets are moderately decreased in number and mainly normal in morphology with rare larger platelets noted. . Aspirate Smears: Cytomorphological examination of the Lee's stained aspirate smears shows spicules present. The overall cellularity is approximately 20%. The myeloid to erythroid ratio is 2:1. Myeloid maturation is abnormal with abnormal nuclear lobation, cytoplasmic granularity, cytoplasmic vacuoles, and left shifted maturation/maturation arrest. There is little maturation past the myelocyte stage. Erythroid maturation is dyserythropoietic with irregular nuclear contours, left shifted maturation, and cytoplasmic vacuoles. There is an increase in blasts (myeloblast and erythroid blasts). In a 500 cell differential, there are 13% blasts (no Jama rods are seen), 66% more differentiated myeloids, 11% erythroid precursors, 9% lymphocytes and 1% plasma cells. Megakaryocytes are proportional in number and both normal and abnormal in morphology with variable sizes in nuclear abnormalities. No lymphoid aggregates or markedly atypical lymphoid cells are seen. [place] [address] PATHOLOGY RPT PROCEDURE Name: HELENJONAHGAIL L Room: [address] IN ..#: [id number] Admission: 07/15/18 Date of : 30 Discharge: 07/27/18 Report #: [id number] Path Case #: [id number] marked atypia. Iron stain of the aspirate smear shows 0/4+ iron positivity with rare spicules present. No ringed sideroblasts are identified. . Core Biopsy and Cell Clot: The decalcified bone marrow core biopsy is adequate. The bone marrow is mildly hypercellular with an overall cellularity of 30-40%. The myeloid to erythroid ratio is difficult to determine. Myeloid and erythroid maturation are dyspoietic with left shifted maturation and an increase in immature/less mature forms. Megakaryocytes are inconspicuous. Rare normal and abnormal megakaryocytes are noted. No lymphoid aggregates or markedly atypical lymphoid cells are seen. Bony trabeculae and blood vessels are unremarkable. The cell clot has spicules present that are similar in cellularity and differential morphology as previously described. . Properly controlled special stains are performed. (Block A1) Iron - 1/4+ iron positivity. Reticulin - No significant reticulin fibrosis. . Iron (Block B1, B2, B3, B4) - 1/4+ iron positivity with spicules present. . Due to the cellular morphology, to confirm the flow cytometry findings and to identify cells in a tissue architectural context, properly controlled immunohistochemical stains are performed. . Block A1 CD34 - Approximately 5% scattered blasts CD117 - Stains scattered cells MPO - Confirms the ME ratio at 2:1 Glycophorin A - Confirms the ME ratio at 2:1 PAX5 - Stains rare scattered B-cells CD20 - Stains rare scattered B-cells CD3 - Highlights scattered T-cells CD30 - Nonreactive CD138 - Approximately 5% scattered plasma cells [place] and lambda in situ hybridization - Plasma cells are polyclonal . Block B3 CD34 - Stains 5-10% scattered blasts CD117 - Stains scattered cells MPO - Confirms the ME ratio at 2-3:1 Glycophorin A - Confirms the ME ratio at 2-3:1 PAX5 - Stains rare scattered B-cells CD20 - Stains rare scattered B-cells CD3 - Highlights scattered T-cells CD30 - Nonreactive CD138 - Stains 5-10% scattered plasma cells [place] and lambda in situ hybridization - [place] [address] PATHOLOGY RPT PROCEDURE Name: GAIL PATTERSON Room: [address] IN ..#: [id number] Admission: 07/15/18 Date of : 30 Discharge: 07/27/18 Report #: [id number] Path Case #: [id number] . Flow Cytometry: Flow cytometric immunophenotypic analysis was performed at [facility]. The diagnosis is "left shifted myeloid maturation with 6% myeloblasts, 1.2% polytypic plasma cells detected, no immunophenotypic evidence of a B-cell or T-cell lymphoproliferative disorder." There are 6% myeloblasts. There are 7% lymphocytes. Of the lymphocytes, there are 0.6% polyclonal B-cells. T-cells have a CD4/CD8 ratio of 1.2 and no aberrant T-cell antigen expression. There are 1.2% plasma cells. These results are suspicious for a marrow disorder. However, given the absence of significant evidence of a myeloid dysmaturation, a severe reactive process (like severe infection or inflammation, severe vitamin 12 deficiency or drug/toxin effect) is also in the differential diagnosis. Please see separate flow cytometry report from [facility] ([id number]). . Cytogenetics Analysis: Cytogenetic chromosomal analysis is pending at [facility] ([id number]). . (CLW:[facility] 07/28/2018) . . . Special studies report received from [facility], [address] [place] [address], [address], [place], [address], on case [id number], labeled with their number [id number], dated 07/22/2018. . Flow Cytometry: Hematologic Neoplasia Assessment . Clinical History Edema, CHF, anemia, pneumonia . Indication for Study Evaluation for hematolymphoid neoplasia . Specimen Bone Marrow . Viability 89% (7AAD exclusion) . Interpretation Bone Marrow: - Left shifted myeloid maturation with 6% myeloid blasts (see comment). - 1.2% polytypic plasma cells detected. - No immunophenotypic evidence of a B-cell or a T-cell lymphoproliferative [place] [address] PATHOLOGY RPT PROCEDURE Name: GAIL PATTERSON Room: [address] IN [facility]#: [id number] Admission: 07/15/18 Date of : 30 Discharge: 07/27/18 Report #: [id number] Path Case #: [id number] Comments These results are suspicious for a marrow disorder. However, given the absence of significant evidence of myeloid dysmaturation, a severe reactive process (like severe infection or inflammation, severe vitamin B12 deficiency or drug/toxin effect) is also in the differential diagnosis. It is of note that in the setting of marked erythroid hyperplasia; the blast percentage may be overestimated due to exclusion of the erythroid precursors from the analysis. Correlation with available clinical, laboratory, and morphologic data is recommended. . Populations Analyzed Myeloid Blasts: 6.0% CD45+ (dim), CD34+, CD117+, HLA DR+, CD11b-, CD11c+ (subset), CD13+, CD14-, CD15-, CD16-, CD33+, CD64-/+, CD38+, CD56-, CD7-/+ (minute subset), CD2-/+ (minute subset) Lymphocytes: 7% B-cells: 0.6%, polytypic/polyclonal sIg light chain pattern T-cells: no significant abnormalities of the markers tested CD4+ T-cells: 3.1% (including 0.8% CD57+ cells) CD8+ T-cells: 2.6% (including 0.7% CD57+ cells) CD4:CD8: 1.2 NK cells: 0.6% Neutrophilic Cells: 76% Decreased CD11c, CD10, and CD16 Monocytic Cells: 5% No significant abnormalities Eosinophils: 2.7% No relative increase Basophils: 0.6% No relative increase Plasma Cells: 1.2% Few detected; no overt abnormalities of the surface markers tested (plasma cells are typically underrepresented by flow cytometry; cytoplasmic light chains were assessed and were polytypic) CD45 Negative 1% No significant reactivity with the markers Events/Debris: tested (may represent unlysed red blood cells, erythroid precursors, platelets, debris, etc.) (erythroid precursors may be underrepresented due to sample lysis/processing) . Morphologic Evaluation A slide was reviewed for environmental quality analyst purposes only. . Specimen Description Cell Yield: 7.84x10 and 6 . Reagent(s) Used CD2, CD3, CD4, CD5, CD7, CD8, CD10, CD11b, CD11c, CD13, CD14, CD16, CD19, CD20, CD33, CD34, CD38, CD45, CD56, CD57, CD64, CD117, HLA-DR, kappa, lambda, CD138, CytoKappa, [place] [address] PATHOLOGY RPT PROCEDURE Name: GAIL PATTERSON Rodríguez Room: [address]#: [id number] Admission: 07/15/18 Date of : 30 Discharge: 07/27/18 Report #: [id number] Path Case #: [id number] at [facility], [facility]. Tiago Garsia MD Pathologist . . Intended Use Flow cytometry is optimally used to immunophenotypically characterize abnormal populations when they are detected. Negative flow cytometry results do not exclude lymphoma or neoplasia. Possible false negative flow cytometry results may occur in, but are not limited to, the following: neoplastic cells in Hodgkin lymphoma are not typically adequately represented by routine clinical flow cytometry; neoplastic cells may be lost or inadequately represented due to degeneration, sample processing, sampling artifact, or patchy involvement; plasma cells are typically underrepresented by flow cytometry; immature cells/blasts may be underrepresented due to hemodilution; myeloproliferative disorders and low grade myelodysplasia may not have immunophenotypic abnormalities or increased blasts. Correlation with all available clinical, laboratory, and morphologic data is always necessary to assess for the possibility of false negative flow cytometry results and to establish a diagnosis. Each marker in this analysis was used to assess for potential antigenic abnormalities or to evaluate detected abnormalities. . Disclaimer(s) This test was performed at [facility]. at [address], [address] - Deck Mechanic: Willy Guadalupe MD. [employer] is a business unit of [employer], a wholly-owned subsidiary of [employer]. . Any image or images that accompany this report are parts sales representative images only and should not be used to render a diagnosis. . This test was developed and its performance characteristics determined by [facility]. It has not been cleared or approved by the Food and Drug Administration (FDA). The FDA has determined that such clearance or approval is not necessary. . For inquiries, the physician may contact Lab: [phone] . A complete copy of the report is on file. . Professional services performed by [facility]. at [address] [facility] [address], [place] [address]. Technical services performed by [facility]. at [address] [address], [place] [address]. . ([facility] 07/22/2018) [place] [address] PATHOLOGY RPT PROCEDURE Name: GAIL PATTERSON Room: [address] IN .R.#: [id number] Admission: 07/15/18 Date of : 30 Discharge: 07/27/18 Report #: [id number] Path Case #: [id number] . . 02 Pathologist provided ICD-10: D61.818, D53.9, D72.819, D69.6, D75.89 . 02 CPT . 737645, 856506, 204796, 453528, 039254, 668606, B56317, S88870, Z14144, V08067, 193449, 081515, 527710, 221695, 243330, 686833 Specimen Comment: A courtesy copy of this report has been sent to Specimen Comment: [phone], , , . Specimen Comment: Report sent to ,DR FERNANDEZ,DR ROTHMAN / DR FREITAS Performed at: 01 [facility] [address] [place] [id number] MD Missael Orozco MD Phone: [phone] Performed at: 02 [place] [id number] [id number] MD Simon Ruiz MD Phone: [phone]
== END 2018-07-27 13:35 | disposition hospice, home (50) | DRG 808 ==
LOC: M.ERS 09:51 → M.TBA-ER 12:00 → M.2W 12:00
PROVIDERS: Family Medicine; Internal Medicine; Nurse Practitioner Adult Health; ADMIT Internal Medicine
PROC: 30233K1 Transfusion of Nonautologous Frozen Plasma into Peripheral Vein, Percutaneous Approach (ICD-10-PCS; principal; 2018-07-17)
PROC: 07DR3ZX Extraction of Iliac Bone Marrow, Percutaneous Approach, Diagnostic (ICD-10-PCS; 2018-07-20)
DX: D61.818 Other pancytopenia (principal); J15.6 Pneumonia due to other Gram-negative bacteria; E43 Unspecified severe protein-calorie malnutrition; N17.9 Acute kidney failure, unspecified; Z51.5 Encounter for palliative care; I48.2 Chronic atrial fibrillation; K57.90 Diverticulosis of intestine, part unspecified, without perforation or abscess without bleeding; I11.0 Hypertensive heart disease with heart failure; I27.81 Cor pulmonale (chronic); E78.5 Hyperlipidemia, unspecified; K20.9 Esophagitis, unspecified; R33.9 Retention of urine, unspecified; I50.9 Heart failure, unspecified; D72.819 Decreased white blood cell count, unspecified; I25.10 Atherosclerotic heart disease of native coronary artery without angina pectoris; I27.20 Pulmonary hypertension, unspecified; Z90.49 Acquired absence of other specified parts of digestive tract; Z90.710 Acquired absence of both cervix and uterus; Z87.11 Personal history of peptic ulcer disease; Z79.82 Long term (current) use of aspirin; Z79.01 Long term (current) use of anticoagulants; Z85.3 Personal history of malignant neoplasm of breast; Z82.49 Family history of ischemic heart disease and other diseases of the circulatory system; Z86.711 Personal history of pulmonary embolism; Z83.3 Family history of diabetes mellitus; Z80.0 Family history of malignant neoplasm of digestive organs; Z68.22 Body mass index [BMI] 22.0-22.9, adult